=== PATIENT | female | born 1955 | race Caucasian/White ===

== ENCOUNTER 2017-06-22 09:47 | Day surgery (SDC) | payer MEDICARE ==
--- NOTE | 2017-06-22 08:24 | HP ---
PROCEDURE DATE: 06/22/17 HISTORY OF PRESENT ILLNESS: The patient is a 61 y/o who had an episode or two of some blood in her stool. Last colonoscopy 4-5 years ago. Also, had some epigastric pain and some left upper quadrant aches as well. The patient had a history of gastric bypass in 2005. Had upper abdominal pain and some rectal bleeding. Needs EGD and colonoscopy. PAST MEDICAL HISTORY: She has had Crohn's disease and fibromyalgia. She has had CFS. CURRENT MEDICATIONS: The patient's medication list includes Ambien, amitriptyline, amlodipine, citalopram, divalproex, Flonase, hydrocodone, lisinopril, Nitrostat PRN, Nystop topical powder, pantoprazole, oxycodone, potassium chloride. ALLERGIES: PENICILLIN, SULFA, CODEINE, VANCOMYCIN, TRANZENE. PAST SURGICAL HISTORY: Has had a hysterectomy, mastectomy, lumpectomy, appendectomy, gastric bypass. FAMILY HISTORY: Heart disease, diabetes, hypertension. An uncle with colon cancer. SOCIAL HISTORY: No smoking or alcohol abuse. REVIEW OF SYSTEMS: 12 systems reviewed. No chest pain or palpitations. Her prior breast surgeries per Dr. Warren in the past. 12 systems reviewed pertinent as above. PHYSICAL EXAMINATION: GENERAL: No acute distress. HEENT: Sclerae nonicteric. NECK: No JVD. CHEST: Equal excursion. Nonlabored breathing. CVS: Regular rate and rhythm. ABDOMEN: Soft. Some mild tenderness in upper abdomen. No rebound. No guarding. EXTREMITIES: No significant edema. NEURO: Alert, moving extremities symmetrically. No gross motor deficits noted. RECTAL: Deferred until time of endoscopy exam. IMPRESSION: 1. PATIENT HAS SOME UPPER ABDOMINAL PAIN AND PRIOR HISTORY OF GASTRIC BYPASS. NEEDS UPPER ENDOSCOPY TO RULE OUT GASTRIC OR MARGINAL ULCER VS GASTRITIS OR OTHER ETIOLOGY. ALSO NEEDS COLONOSCOPY HER LAST WAS 4-5 YEARS AGO AND SHE HAS HAD SOME RECTAL BLEEDING. She was shown the risk sheet and explained the procedure in detail, but not limited to, bleeding; infection; small risk of bowel injury or perforation possibly requiring open procedure; small risk of missed or nondiagnosis or incomplete exam possibly requiring barium enema or other studies or procedures; general risk of anesthesia or sedation, but not limited to; risk of ongoing morbidity. She understands as well as the risk of bowel prep, risk of anesthesia or sedation, postoperative risk of nausea or cramping, but not limited to. She understands and agrees to the planned procedure. Will proceed in outpatient with EGD and colonoscopy.
[~2017-06-22 09:47] MED LIST: Lactated Ringers 1,000 ML IV ONE; Lactated Ringers 1,000 ML IV SCH
[2017-06-22] MEDS ORDERED: Versed 2 MG/2 ML Injection IV ONE (09:48)
[2017-06-22] MEDS ORDERED: DIPRIVAN 200 MG/20 ML IV ONE (09:48)
[2017-06-22] MEDS ORDERED: Lactated Ringers 1,000 ML IV ONE (12:25)
[2017-06-22 13:20] VITALS: O2SAT 96
[2017-06-22 14:05] VITALS: BP 110/70; PULSE 60
--- NOTE | 2017-06-22 14:32 | OP ---
SURGERY DATE/TIME: 06/22/2017 1155 PREOPERATIVE DIAGNOSES: 1) History of some upper abdominal pain, left upper quadrant pain. 2) History of some rectal bleeding and need for follow up colonoscopy. POSTOPERATIVE DIAGNOSES: 1) Patent gastrojejunal anastomosis. No evidence of any acute ulcer. 2) Poor bowel prep limiting the colon exam. 3) Very tortuous colon. 4) Diverticulosis. 5) Small internal and external hemorrhoids. PROCEDURES: 1) EGD with cold biopsy of the stomach to evaluate for Helicobacter pylori. 2) Colonoscopy to proximal ascending colon (further past this aborted secondary to very poor prep and not able to reduce loops to reach the cecum). 3) Random cold biopsies throughout the colon to evaluate for microscopic colitis. SURGEON: Dr. Shady Alonzo. ANESTHESIA: MAC. ESTIMATED BLOOD LOSS: Minimal. INDICATIONS: As noted above. Risks and benefits explained in detail and not limited to and consent was obtained. DESCRIPTION OF PROCEDURE AND FINDINGS: The patient is taken to the endoscopy room. MAC anesthesia introduced. After official time out and no disagreement with planned procedure, a bite block positioned. Video gastroscope easily passed down the esophagus through the patent gastroenteric anastomosis. The small bowel itself was grossly unremarkable. There were some minimal erythema on the enteric side of the gastroenteric anastomosis from previous bypass. No evidence of any obvious marginal ulcer at this time. Because of her symptoms cold biopsy taken to evaluate for Helicobacter pylori in the stomach. The esophagus is grossly unremarkable. The gastroesophageal junction was about 37 cm. No signs of any ulcers. No signs of any masses. No signs of any inflammation in the esophagus. No signs of any obvious mucosal lesions in the esophagus itself. The scope is withdrawn. Good hemostasis noted on biopsy of the stomach. Again, there had been minimal erythema on the enteric side right next to the gastroenteric anastomosis but no signs of any ulceration to account for aches or pains. The scope is withdrawn. The patient tolerated the procedure well. Attention is then turned to the colonoscopy. Digital rectal exam did not reveal any rectal masses. She did have some small internal and external hemorrhoids. Video colonoscope inserted and passed up the very tortuous, poorly prepped with large amount of liquidy semi-solid stool limiting the exam. With position changes, external pressure the scope was able to be passed down the transverse colon what was felt to be proximal ascending colon. However the mucosa with poor prep and inability to reduce the loops with the scope, it was felt further passage would risk high risk complications versus any benefits. I felt it would be safer to go ahead and withdrawal the scope and order air contrast barium enema to see the cecum itself better. The scope is slowly and carefully withdrawn. Again the prep was very poor limiting the exam for small to medium lesions. There are no signs of any large polyps, masses or obstructing lesions. As she had the left upper quadrant aches and pains, random cold biopsies taken throughout the left side of her colon to evaluate for microscopic colitis. There were no signs of any gross mucosal lesions. No sign of diverticulosis. No internal or external hemorrhoids. No signs of any large polyps, masses or obstructing lesions. The scope is withdrawn. The findings discussed with the family or friend out in the waiting area. I will see her back in the office to go over the biopsy results. Will also order outpatient air contrast barium enema to evaluate the right side of the colon more effectively.
== END 2017-06-22 14:17 | disposition home or self-care (01) ==
LOC: SDC 09:47
PROVIDERS: ATTEND Surgery
PROC: 0DB78ZX Excision of Stomach, Pylorus, Via Natural or Artificial Opening Endoscopic, Diagnostic (ICD-10-PCS; principal; 2017-06-22)
PROC: 0DBG8ZX Excision of Left Large Intestine, Via Natural or Artificial Opening Endoscopic, Diagnostic (ICD-10-PCS; 2017-06-22)
DX: K63.89 Other specified diseases of intestine (principal); Q43.8 Other specified congenital malformations of intestine; K57.90 Diverticulosis of intestine, part unspecified, without perforation or abscess without bleeding; R10.12 Left upper quadrant pain; R10.13 Epigastric pain; Z98.84 Bariatric surgery status; K50.90 Crohn's disease, unspecified, without complications; M79.7 Fibromyalgia; Z79.899 Other long term (current) drug therapy; K64.4 Residual hemorrhoidal skin tags; K64.8 Other hemorrhoids
CPT/HCPCS: 00740; 00810; 87081; J2250; J2704

== ENCOUNTER 2018-06-15 18:09 | Emergency (ER) | payer MEDICARE ==
[2018-06-15] MEDS ORDERED: TORAdol 30 mg Injection IM ONE (19:22)
--- NOTE | 2018-06-15 19:27 | ERPHSYRPT ---
- History of Present Illness Time Seen by Provider: 06/15/18:19 Source: patient Exam Limitations: no limitations Patient Subjective Stated Complaint: fell down 4 steps while leaving a house, butt hit first and then her back hit Triage Nursing Assessment: Pt c/o of falling down some steps and hitting her back, hx of low back fracture and chronic back pain, pain in lower back, vitals wnl, pulses normal, right elbow pain, denies any other injuries Physician History: 62-year-old white female with history of chronic back pain who states she's had back fractures in the past arrives with complaint of pain in her low back lumbar region after falling down stairs landing on her bottom at about 5:00. Patient states pain is worse with movement and palpation. Patient has no movement changes. No sensory changes. Past medical history includes chronic back pain, low back fracture, asthma, DVT , high blood pressure, Crohn's, GERD, abnormal uterine bleeding, rest cancer, fibromyalgia, gastric bypass Past surgical history includes hysterectomy, gastric bypass, IVC filter, mastectomy on the right, lumpectomy on the left Timing/Duration: today (5:00 this evening) Severity: moderate Modifying Factors: Improves With: nothing Associated Symptoms: No nausea, No vomiting, No abdominal pain, No shortness of breath, No heartburn, No diaphoresis, No cough, No chills, No chest pain, No fever, No headaches, No loss of appetite, No malaise, No syncope, No seizure, No weakness Allergies/Adverse Reactions: clorazepate dipotassium [From Tranxene T-Tab] Allergy (Severe, Verified 19:01) Hives Penicillins Allergy (Severe, Verified 06/15/18 19:) pentazocine lactate [From Talwin] Allergy (Severe, Verified 06/15/18 19:01) vancomycin Allergy (Severe, Verified 06/15/18 19:01) Tightness of Throat codeine [Codeine] Allergy (Mild, Verified 06/15/18 19:) Tightness of Throat Sulfa (Sulfonamide Antibiotics) [Sulfa(Sulfonamide Antibiotics)] Allergy (Mild, Verified 06/15/18 19:01) Hives butorphanol tartrate [From Stadol] Allergy (Verified 06/15/18 19:) Hives trazodone Allergy (Verified 11/13/18 19:01) Home Medications: Amitriptyline HCl 25 mg [Elavil 25 mg] 25 mg PO BID 12/16/11 [History] Citalopram Hydrobromide 20 mg* [ceLEXa 20 MG] 20 mg PO DAILY 12/16/11 [ History] Pantoprazole 20 mg [Protonix 20MG Tablet] 40 mg PO DAILY 12/16/11 [History ] Potassium Chloride 8 meq PO DAILY 12/16/11 [History] Zolpidem Tartrate 10 mg [Ambien 10 MG] 10 mg PO DAILY 12/16/11 [History] Divalproex Sodium [Depakote] 500 mg PO BID 03/05/15 [History] Hydrocodone/Acetaminophen [Hydrocodon-Acetaminoph 7.5-325] 1 each PO Q12H PRN PRN 06/16/17 [History] Calcium Carbonate [Paige-Mint] 850 mg PO QID PRN 06/17/17 [History] Alendronate Sodium 70 mg [Fosamax 70 MG] 70 mg PO WEEKLY 06/15/18 [History ] Diclofenac Sodium Gel [Voltaren GEL] 100 gm TP QID PRN 06/15/18 [History] Lisinopril 20 mg PO DAILY 06/15/18 [History] Primidone 50 mg PO TID 06/15/18 [History] - Review of Systems Constitutional: No Fever, No Chills Eyes: No Symptoms Ears, Nose, & Throat: No Symptoms Respiratory: No Cough, No Dyspnea Cardiac: No Chest Pain, No Edema, No Syncope Abdominal/Gastrointestinal: No Abdominal Pain, No Nausea, No Vomiting, No Diarrhea Genitourinary Symptoms: No Dysuria Musculoskeletal: Back Pain (low back pain midline), Fall, Injury, No Arthralgias , No Neck Pain, No Deformity, No Joint Redness, No Joint Pain, No Joint Swelling Skin: No Rash Neurological: No Dizziness, No Focal Weakness, No Sensory Changes Psychological: No Symptoms Endocrine: No Symptoms All Other Systems: Reviewed and Negative - Past Medical History Pertinent Past Medical History: Yes Neurological History: No Pertinent History ENT History: No Pertinent History Cardiac History: Deep Vein Thrombosis, Hypertension Respiratory History: Asthma Endocrine Medical History: No Pertinent History Musculoskeletal History: Fibromyalgia GI Medical History: Crohns Disease, GERD History: No Pertinent History Psycho-Social History: No Pertinent History Female Reproductive Disorders: Abnormal Uterine Bleeding, Breast Cancer Other Medical History: PT. HAS CROHN'S DISEASE AND HAS FIBROMYALGIA, AND HAD BREAST CA 25 YEARS AGO W/ NO RECURRENCE. GASTRIC BYPASS 2005 - Past Surgical History Past Surgical History: Yes Neuro Surgical History: No Pertinent History Cardiac: No Pertinent History Respiratory: No Pertinent History Gastrointestinal: Appendectomy, Cholecystectomy, Other Genitourinary: No Pertinent History Musculoskeletal: No Pertinent History Female Surgical History: Hysterectomy Other Surgical History: gastric bypass, ivc filter,rt right mastectomy 1992,lt lumpectomy - Social History Smoking Status: Never smoker Exposure to second hand smoke: No Drug Use: none Patient Lives Alone: Yes - Female History Hx Now: No - Nursing Vital Signs Nursing Vital Signs: Initial Vital Signs Temperature 98.2 F 06/15/18 18:48 Pulse Rate 79 06/15/18 18:48 Blood Pressure 120/69 06/15/18 18:48 O2 Sat by Pulse Oximetry 99 06/15/18 18:48 Pain Scale Pain Intensity 7 - Physical Exam General Appearance: no apparent distress, alert Eye Exam: PERRL/EOMI, eyes nml inspection Ears, Nose, Throat Exam: normal ENT inspection, TMs normal, pharynx normal, moist mucous membranes Neck Exam: normal inspection, non-tender, supple, full range of motion Respiratory Exam: normal breath sounds, lungs clear, No respiratory distress Cardiovascular Exam: regular rate/rhythm, normal heart sounds, normal peripheral pulses Gastrointestinal/Abdomen Exam: soft, normal bowel sounds, No tenderness, No mass Extremity Exam: normal range of motion, other (mild tenderness with palpation low lumbar region midline tenderness with palpation sacral region), No calf tenderness, No deformities, No lacerations, No penetrations, No parasthesia, No paralysis Neurologic Exam: alert, oriented x 3, cooperative, class a lineman II-XII nml as tested, normal mood/affect, nml cerebellar function, nml station & gait, sensation nml, No motor deficits Skin Exam: normal color, warm, dry, No rash SpO2 Interpretation: normal (99%) SpO2: 99 Oxygen Delivery: Room Air - Course Nursing assessment & vital signs reviewed: Yes - Radiology Exams L-Spine X-ray Interpretation: Interpreted by me (lumbar spine: Compression fractures T12 , L1 do not correspond to location of patient's pain) Pelvis X-ray Interpretation: Interpreted by me, Other (x-ray pelvis: No acute fractures or subluxation) Ordered Tests: Active Orders 24 hr Category Date Time Status LUMBAR LIMITED (2 OR 3 VIEWS) Stat Exams 06/15/18 19:22 Taken PELVIS (1 OR 2 VIEWS) Stat Exams 06/15/18 19:22 Taken Medication Summary Discontinued Medications Generic Name Dose Route Start Last Admin Trade Name Celso PRN Reason Stop Dose Admin Ketorolac Tromethamine 60 mg 06/15/18 19:22 06/15/18 19:56 Toradol 30 Mg Injection IM 06/15/18 19:23 60 mg STAT ONE Administration Ketorolac Tromethamine Confirm 06/15/18 19:49 Toradol 30 Mg Injection Administered 06/15/18 19:50 Dose 60 mg .ROUTE .STK-MED ONE - Progress Progress: improved Progress Note: 06/15/18 20:26 62-year-old white female with history of low back fractures, chronic back pain. Arrives with complaint of pain in her low back sacral area after falling down 4 steps this afternoon. Patient is feeling much better after Toradol. X-ray of her lumbar series shows compression fractures which appear to be L1- T12. No fractures in the lower lumbosacral area where patient has pain. X-ray pelvis no fracture no subluxation. Patient is on [place] at home. Will plan to discharge patient. - Departure Time of Disposition: 20:28 Departure Disposition: Home Clinical Impression: Accidental fall Qualifiers: Encounter type: initial encounter Qualified Code(s): W19.XXXA - Unspecified fall, initial encounter Back pain Qualifiers: Back pain location: low back pain Chronicity: unspecified Back pain laterality : midline Sciatica presence: without sciatica Qualified Code(s): M54.5 - Low back pain Condition: Fair Critical Care Time: No Referrals: FELICIANO GONZALEZ [Primary Care Provider] - Additional Instructions: Return home. Medications as prescribed by your family doctor. Follow-up with your family doctor. Return for acute distress or for severe symptoms. Your x-rays have been preliminarily read they will be reread tomorrow you'll be contacted if any discrepancies are noted.
[2018-06-15] MEDS ORDERED: TORAdol 30 mg Injection ONE (19:49)
[2018-06-15 20:00] VITALS: BP 125/64; PULSE 61
[2018-06-15 20:23] VITALS: O2SAT 99
--- NOTE | 2018-06-16 09:08 | XRAY ---
Indication: Pain following fall. Comparison: None Single AP pelvis demonstrates lower lumbar degenerative spondylosis and partially visualized IVC filter. No other bony, articular, or soft tissue abnormalities.
--- NOTE | 2018-06-16 09:11 | XRAY ---
Indication: Pain following fall. Comparison: December 16, 2013. 3 views of the lumbar spine demonstrates new remote-appearing T12/L1 superior endplate fractures with approximately 50% height loss. Stable mild/moderate L4-S1 degenerative disc disease, IVC filter, and cholecystectomy clips. No other bony, articular, or soft tissue abnormalities.
== END 2018-06-15 20:46 | disposition home or self-care (01) ==
LOC: ED 18:09
DX: M54.5 Low back pain (principal); S39.92XA Unspecified injury of lower back, initial encounter; M48.56XA Collapsed vertebra, not elsewhere classified, lumbar region, initial encounter for fracture; M48.54XA Collapsed vertebra, not elsewhere classified, thoracic region, initial encounter for fracture; W10.9XXA Fall (on) (from) unspecified stairs and steps, initial encounter; Z79.899 Other long term (current) drug therapy
CPT/HCPCS: 72100; 72170; 96372; 99284; J1885

== ENCOUNTER 2019-01-05 12:50 | Day surgery (SDC) | payer MEDICARE ==
[2019-01-05] MEDS ORDERED: Depo-Medrol 40 MG/ML IM ONE (12:51)
[2019-01-05] MEDS ORDERED: Xylocaine 1% Vial 30 ML PF IJ ONE (12:51)
[2019-01-05] MEDS ORDERED: Marcaine 0.5% SDV 10 ML IJ ONE (12:51)
--- NOTE | 2019-01-05 15:02 | XRAY ---
8 seconds fluoroscopy time in surgery for left intra-articular knee injection.
--- NOTE | 2019-01-05 15:10 | XRAY ---
Indication: Left knee injection. Intraoperative fluoroscopy was provided for 8 seconds. Single digital spot image submitted for interpretation demonstrates needle tip projecting over the left femur intercondylar notch. Small amount of contrast injected for needle tip placement. Correlate with intraoperative findings/report.
== END 2019-01-05 14:07 | disposition home or self-care (01) ==
LOC: SDC-PAIN 12:50
PROVIDERS: ATTEND Psychiatry & Neurology Pain Medicine
DX: M17.12 Unilateral primary osteoarthritis, left knee (principal); I10 Essential (primary) hypertension; M79.7 Fibromyalgia; K21.9 Gastro-esophageal reflux disease without esophagitis; K50.90 Crohn's disease, unspecified, without complications; F41.9 Anxiety disorder, unspecified; E66.01 Morbid (severe) obesity due to excess calories; M81.0 Age-related osteoporosis without current pathological fracture
CPT/HCPCS: 20611; 73560; 77002; J1030; J2001; Q9966

== ENCOUNTER 2019-03-09 10:34 | Day surgery (SDC) | payer MEDICARE ==
[2019-03-09] MEDS ORDERED: Xylocaine-Mpf 2% 5 Ml Vial IJ ONE (10:35)
[2019-03-09] MEDS ORDERED: Depo-Medrol 40 MG/ML IM ONE (10:35)
[2019-03-09] MEDS ORDERED: DIPRIVAN 200 MG/20 ML IV ONE (11:18)
[2019-03-09] MEDS ORDERED: Ketamine HCl 50 MG/ML ONE (11:18)
--- NOTE | 2019-03-09 12:28 | XRAY ---
Indication: Bilateral L4-S1 MBB. Intraoperative fluoroscopy was provided for 4 seconds. Single digital spot image submitted for interpretation demonstrates posterior needle tips projecting over the expected course of the left and right L4-S1 nerve roots. Correlate with intraoperative findings/report. Incidental IVC filter projects predominantly over the L4 segment.
--- NOTE | 2019-03-09 12:30 | XRAY ---
4 seconds fluoroscopy time in surgery for bilateral L4-S1 MBB.
[2019-03-09] MEDS ORDERED: Lactated Ringers 1,000 ML IV ONE (13:46)
== END 2019-03-09 11:48 | disposition home or self-care (01) ==
LOC: SDC-PAIN 10:34
PROVIDERS: ATTEND Psychiatry & Neurology Pain Medicine
DX: M47.816 Spondylosis without myelopathy or radiculopathy, lumbar region (principal); I10 Essential (primary) hypertension; K21.9 Gastro-esophageal reflux disease without esophagitis; K50.90 Crohn's disease, unspecified, without complications; M79.7 Fibromyalgia; M81.0 Age-related osteoporosis without current pathological fracture; G47.30 Sleep apnea, unspecified; Z79.899 Other long term (current) drug therapy
CPT/HCPCS: 64493; 64494; 72020; 77002; J1030; J2704

== ENCOUNTER 2019-04-06 12:32 | Day surgery (SDC) | payer MEDICARE ==
[2019-04-06] MEDS ORDERED: Depo-Medrol 40 MG/ML IM ONE (12:33)
[2019-04-06] MEDS ORDERED: Xylocaine 1% Vial 30 ML PF IJ ONE (12:33)
[2019-04-06] MEDS ORDERED: Marcaine 0.5% SDV 10 ML IJ ONE (12:33)
--- NOTE | 2019-04-06 14:52 | XRAY ---
14 seconds fluoroscopy time in surgery for right knee injection.
--- NOTE | 2019-04-06 14:53 | XRAY ---
Indication: Right knee injection. Intraoperative fluoroscopy was provided for 14 seconds. Single digital spot image submitted for interpretation demonstrates needle tip projecting over the right femur intercondylar notch. Small amount of contrast injected for needle tip placement. Correlate with intraoperative findings/report.
== END 2019-04-06 13:48 | disposition home or self-care (01) ==
LOC: SDC-PAIN 12:32
PROVIDERS: ATTEND Psychiatry & Neurology Pain Medicine
DX: M17.11 Unilateral primary osteoarthritis, right knee (principal); I10 Essential (primary) hypertension; K21.9 Gastro-esophageal reflux disease without esophagitis; K50.90 Crohn's disease, unspecified, without complications; M79.7 Fibromyalgia; M81.0 Age-related osteoporosis without current pathological fracture; F41.9 Anxiety disorder, unspecified; G47.30 Sleep apnea, unspecified; D64.9 Anemia, unspecified; Z79.899 Other long term (current) drug therapy
CPT/HCPCS: 73560; 77002; J1030; J2001

== ENCOUNTER 2019-05-04 11:26 | Day surgery (SDC) | payer MEDICARE ==
[2019-05-04] MEDS ORDERED: Marcaine 0.5% SDV 10 ML IJ ONE (11:27)
[2019-05-04] MEDS ORDERED: Depo-Medrol 40 MG/ML IM ONE (11:27)
[2019-05-04] MEDS ORDERED: Ketamine HCl 50 MG/ML ONE (13:08)
[2019-05-04] MEDS ORDERED: DIPRIVAN 200 MG/20 ML IV ONE (13:08)
[2019-05-04] MEDS ORDERED: Lactated Ringers 1,000 ML IV ONE (14:49)
--- NOTE | 2019-05-04 15:02 | XRAY ---
Indication: Bilateral L4-S1 MBB. Intraoperative fluoroscopy was provided for 7 seconds. Single digital spot image submitted for interpretation demonstrates posterior needle tips projecting over the expected course of the left and right L4-S1 nerve roots. Correlate with intraoperative findings/report. Incidental IVC filter projects over the L4 segment.
--- NOTE | 2019-05-04 15:16 | XRAY ---
7 seconds of fluoroscopy was used in surgery for a bilateral L4-L5, L5-S1 MBB.
== END 2019-05-04 13:35 ==
LOC: SDC-PAIN 11:26
PROVIDERS: ATTEND Psychiatry & Neurology Pain Medicine
DX: M47.816 Spondylosis without myelopathy or radiculopathy, lumbar region (principal); M79.7 Fibromyalgia; K21.9 Gastro-esophageal reflux disease without esophagitis; D64.9 Anemia, unspecified; G47.30 Sleep apnea, unspecified; I10 Essential (primary) hypertension; K50.90 Crohn's disease, unspecified, without complications; M81.0 Age-related osteoporosis without current pathological fracture; Z79.899 Other long term (current) drug therapy
CPT/HCPCS: 64493; 64494; 72020; 77002; J1030; J2704

== ENCOUNTER 2019-11-30 15:12 | Inpatient (IN) | payer MEDICARE ==
[2019-11-30] MEDS ORDERED: Sodium Chloride 0.9% 1000 ML 1,000 ML IV STA (15:32)
[2019-11-30] MEDS ORDERED: Sodium Chloride 0.9% 1000 ML 1,000 ML ONE (15:38)
[2019-11-30 15:42] LABS: Absolute Neutrophil Ct (ANC) 8.61 (1.4-6.9); BASOPHIL % 0.1 % (0.0-0.4); Basophil (Absolute #) 0.01 (0-0.4); Eosinophil % 0.1 % (0.00-5.0); Eosinophil (Absolute #) 0.01 (0-0.5); Hematocrit 44.2 % (35-47); Hemoglobin 15.2 gm/dl (12.0-16.0); Lymphocyte (Absolute #) 1.62 (1.0-4.6); Mean Cell Volume 96.1 fl (78-100); Mean Corpuscular Hgb Concent. 34.4 g/dl (32-36); Mean Platelet Volume 8.7 fl (7.5-11.0); Monocyte (Absolute #) 0.56 (0.0-1.3); Monocytes % 5.2 % (0.0-12.0); Neutrophil % 79.6 % (36.0-66.0); Platelet Count 454 K/mm3 (150-450); Red Cell Distribution Width 12.5 % (11.5-14.0); White Blood Count 10.8 K/mm3 (4.0-10.5)
[2019-11-30 15:51] LABS: Appearance SLIGHTLY CLOUDY (CLEAR); Bacteria RARE /HPF (NEGATIVE); Bilirubin NEGATIVE (NEGATIVE); Blood NEGATIVE Ery/ul (0-5); Epithelial Cells RARE /HPF (FEW); Glucose 50 mg/dL (NEGATIVE); Ketones SMALL (NEGATIVE); Leukocyte Esterase NEGATIVE (NEGATIVE); Mucus SLIGHT /HPF (NEGATIVE); Nitrite NEGATIVE (NEGATIVE); Protein,Urine Dip 100 (Negative); RBC 0-2 /HPF (0-2); Specific Gravity 1.025 (1.005-1.025); Urobilinogen NEGATIVE mg/dL (0-1)
[2019-11-30 15:54] LABS: ALBUMIN 4.2 g/dL (3.5-5.0); ALKALINE PHOSPHATASE 133 U/L (38-126); ANION GAP 19.6 MEQ/L (5-15); BLOOD UREA NITROGEN 18 mg/dL (7-17); CHLORIDE 99 mmol/L (98-107); Calcium 10.8 mg/dL (8.4-10.2); Carbon Dioxide 22 mmol/L (22-30); Creatinine 1 0.61 mg/dL (0.52-1.04); Glucose 181 mg/dL (74-106); Potassium 4.8 mmol/L (3.5-5.1); SGOT/AST 158 U/L (14-36); SGPT/ALT 90 U/L (0-35); SODIUM 135 mmol/L (137-145); Total Protein 7.9 g/dL (6.3-8.2)
[2019-11-30] MEDS ORDERED: Zofran 4 MG/2 ML VIAL IV ONE (15:57)
[2019-11-30] MEDS ORDERED: Zofran 4 MG/2 ML VIAL ONE (16:02)
--- NOTE | 2019-11-30 16:21 | ERPHSYRPT ---
- History of Present Illness Time Seen by Provider: 11/30/19 15:20 Historian: patient Patient Subjective Stated Complaint: Reports acute onset abdominal pain described as "squeezing and like my guts might explode." Triage Nursing Assessment: Pt presented alert et oriented x3. Reports acute onset abdominal pain described as "squeezing and like my guts might explode." Denies any recent vomiting/diarrhea. Denies chest pain/shortness of breath. Pupils 4mm reactive. Neck supple without JVD. Symmetrical chest expansion. Lungs clear with adequate airflow. Noted scar to right anterior chest from right sided masectomy. Abdomen obese/tender without palpable organomegaly. Noted pulsatile tones via auscultation to abdomen. Bowel sounds present in all quadrants. No noted dependent edema. Radial pulses equal bilateral. No noted focal neurological deficits. Denies numbness/paresthesias to all extremities. Pedal pulses equal bilateral Physician History: Patient is a 64yo F who presents to ED with c/o lower abdominal pain x 1 day. Pain described as a squeezing sensation. She states " it feels like Pain describes as an ache that is well localized. No radiation. Pain worse with movement and palpation. Pain improves with rest. NO trauma or fevers. Patient has a history of gastric bypass, about 14 years ago per patient. Timing/Duration: today Activities at Onset: none Quality: aching Abdominal Pain Onset Location: RLQ Pain Radiation: no radiation Severity of Pain-Max: moderate Severity of Pain-Current: mild Modifying Factors: Improves With: nothing Associated Symptoms: denies symptoms Allergies/Adverse Reactions: clorazepate dipotassium [From Tranxene T-Tab] Allergy (Severe, Verified 15:24) Hives Penicillins Allergy (Severe, Verified 11/30/19 15:24) pentazocine lactate [From Talwin] Allergy (Severe, Verified 11/30/19 15:24) vancomycin Allergy (Severe, Verified 11/30/19 15:24) Tightness of Throat codeine [Codeine] Allergy (Mild, Verified 11/30/19 15:24) Tightness of Throat Sulfa (Sulfonamide Antibiotics) [Sulfa(Sulfonamide Antibiotics)] Allergy (Mild, Verified 11/30/19 15:24) Hives butorphanol tartrate [From Stadol] Allergy (Verified 11/30/19 15:24) Hives trazodone Allergy (Verified 11/30/19 15:24) Home Medications: Amitriptyline HCl 25 mg [Elavil 25 mg] 25 mg PO BID 12/16/11 [History] Citalopram Hydrobromide 20 mg* [ceLEXa 20 MG] 20 mg PO DAILY 12/16/11 [ History] Pantoprazole 20 mg [Protonix 20MG Tablet] 40 mg PO DAILY 12/16/11 [History ] Potassium Chloride 8 meq PO DAILY 12/16/11 [History] Zolpidem Tartrate 10 mg [Ambien 10 MG] 10 mg PO DAILY 12/16/11 [History] Divalproex Sodium [Depakote] 500 mg PO BID 03/05/15 [History] Hydrocodone/Acetaminophen [Hydrocodon-Acetaminoph 7.5-325] 1 each PO Q12H PRN PRN 06/16/17 [History] Calcium Carbonate [Paige-Mint] 850 mg PO QID PRN 06/17/17 [History] Alendronate Sodium 70 mg [Fosamax 70 MG] 70 mg PO WEEKLY 06/15/18 [History ] Primidone 50 mg PO TID 06/15/18 [History] lisinopriL [Lisinopril] 20 mg PO DAILY 06/15/18 [History] Immunizations Up to Date: Yes Travel Risk - International Travel Have you traveled outside of the country in past 3 weeks: No Have you or anyone close to you been diagnosed with or: No Do your reside in a community with a known COVID-19 case?: Yes If Yes where:: [facility] - Coronavirus Screening Has patient experienced Coronavirus symptoms: No - Review of Systems Constitutional: No Symptoms, No Fever, No Chills Eyes: No Symptoms Ears, Nose, & Throat: No Symptoms Respiratory: No Symptoms, No Cough, No Dyspnea Cardiac: No Symptoms, No Chest Pain, No Edema, No Syncope Abdominal/Gastrointestinal: No Symptoms, No Abdominal Pain, No Nausea, No Vomiting, No Diarrhea Genitourinary Symptoms: No Symptoms, No Dysuria Musculoskeletal: No Symptoms, No Back Pain, No Neck Pain Skin: No Symptoms, No Rash Neurological: No Symptoms, No Dizziness, No Focal Weakness, No Sensory Changes Psychological: No Symptoms Endocrine: No Symptoms Hematologic/Lymphatic: No Symptoms Immunological/Allergic: No Symptoms All Other Systems: Reviewed and Negative - Past Medical History Pertinent Past Medical History: Yes Neurological History: No Pertinent History ENT History: No Pertinent History Cardiac History: Deep Vein Thrombosis, Hypertension Respiratory History: Asthma Endocrine Medical History: No Pertinent History Musculoskeletal History: Fibromyalgia GI Medical History: Crohns Disease, GERD History: No Pertinent History Psycho-Social History: No Pertinent History Female Reproductive Disorders: Abnormal Uterine Bleeding, Breast Cancer Other Medical History: PT. HAS CROHN'S DISEASE AND HAS FIBROMYALGIA, AND HAD BREAST CA 25 YEARS AGO W/ NO RECURRENCE. GASTRIC BYPASS 2005 - Past Surgical History Past Surgical History: Yes Neuro Surgical History: No Pertinent History Cardiac: No Pertinent History Respiratory: No Pertinent History Gastrointestinal: Appendectomy, Cholecystectomy, Other Genitourinary: No Pertinent History Musculoskeletal: No Pertinent History Female Surgical History: Hysterectomy Other Surgical History: gastric bypass, ivc filter,rt right mastectomy 1992,lt lumpectomy - Social History Smoking Status: Never smoker Exposure to second hand smoke: No Drug Use: none Patient Lives Alone: Yes - Nursing Vital Signs Nursing Vital Signs: Initial Vital Signs Temperature 98.4 F 11/30/19 15:13 Pulse Rate 114 H 11/30/19 15:13 Respiratory Rate 16 11/30/19 15:13 Blood Pressure 155/108 11/30/19 15:13 O2 Sat by Pulse Oximetry 93 L 11/30/19 15:13 Pain Scale Pain Intensity 0 - Physical Exam General Appearance: no apparent distress, alert Eye Exam: PERRL/EOMI, eyes nml inspection Ears, Nose, Throat Exam: normal ENT inspection, pharynx normal, moist mucous membranes Neck Exam: normal inspection, non-tender, supple, full range of motion Respiratory Exam: normal breath sounds, lungs clear, No respiratory distress Cardiovascular Exam: regular rate/rhythm, normal heart sounds Gastrointestinal/Abdomen Exam: soft, tenderness (TTP LLQ. Femoral and PT/DP pulses palpable and equal bilaterally. ), No mass Back Exam: normal inspection, normal range of motion, other (NO TTP at area of T12/L1 compression deformity. ), No CVA tenderness, No vertebral tenderness Extremity Exam: normal inspection, normal range of motion, pelvis stable Neurologic Exam: alert, oriented x 3, cooperative, normal mood/affect, nml cerebellar function, sensation nml, No motor deficits Skin Exam: normal color, warm, dry SpO2 Interpretation: normal SpO2: 93 O2 Delivery: Room Air - Course Nursing assessment & vital signs reviewed: Yes EKG Interpreted by Me: RATE, Sinus Tach, NORMAL AXIS, NORMAL INTERVALS - CT Exams Abdomen/Pelvis CT Interpretation: Tele-radiologist Report (Right inguinal hernia with herniated loop of small bowel producing partial small bowel obstruction, moderate inguinal hernia, chronic appearing T12/L1 compression deformity. ) Ordered Tests: Active Orders 24 hr Category Date Time Status EKG-ER Only STAT Care 11/30/19 15:32 Active IV Insertion STAT Care 11/30/19 15:32 Active Nursing [Miscellaneous Nursing Order] ROUTINE Care 11/30/19 18:26 Active ABDOMEN AND PELVIS W CONTRAST [CT] Stat Exams 11/30/19 15:32 Completed CBC W DIFF Stat Lab 11/30/19 15:43 Completed CMP Stat Lab 11/30/19 15:43 Completed CULTURE,URINE Stat Lab 11/30/19 15:43 Received TROPONIN Q3H Lab 11/30/19 15:43 Completed TROPONIN Q3H Lab 11/30/19 18:45 Ordered TROPONIN Q3H Lab 11/30/19 21:45 Ordered TROPONIN Q3H Lab 12/01/19 00:45 Ordered TROPONIN Q3H Lab 12/01/19 03:45 Ordered UA W/RFX UR CULTURE Stat Lab 11/30/19 15:43 Completed Transfer Order Routine Transfer 11/30/19 Ordered Medication Summary Generic Name Dose Route Start Last Admin Trade Name Freq PRN Reason Stop Dose Admin Levofloxacin/Dextrose 500 mg in 100 mls @ 100 mls/hr 11/30/19 18:14 11/30/19 18:19 Levofloxacin 500mg/100ml D5w IV 11/30/19 19:13 100 mls/hr STAT STA 100 mls/hr Administration Discontinued Medications Generic Name Dose Route Start Last Admin Trade Name Freq PRN Reason Stop Dose Admin Sodium Chloride 1,000 mls @ 999 mls/hr 11/30/19 15:32 11/30/19 17:09 Sodium Chloride 0.9% 1000 Ml IV 11/30/19 16:32 Infused .Q1H1M STA Infusion Sodium Chloride Confirm 11/30/19 15:38 Sodium Chloride 0.9% 1000 Ml Administered 11/30/19 15:39 Dose 1,000 mls @ ud .ROUTE .STK-MED ONE Levofloxacin/Dextrose Confirm 11/30/19 18:18 Levofloxacin 500mg/100ml D5w Administered 11/30/19 18:19 Dose 500 mg in 100 mls @ ud IV .STK-MED ONE Morphine Sulfate 4 mg 11/30/19 18:06 11/30/19 18:15 Morphine Sulfate 4 Mg Inj IV 11/30/19 18:07 4 mg STAT ONE Administration Morphine Sulfate Confirm 11/30/19 18:14 Morphine Sulfate 4 Mg Inj Administered 11/30/19 18:15 Dose 4 mg .ROUTE .STK-MED ONE Ondansetron HCl 4 mg 11/30/19 15:57 11/30/19 16:03 Zofran 4 Mg/2 Ml Vial IV 11/30/19 15:58 4 mg STAT ONE Administration Ondansetron HCl Confirm 11/30/19 16:02 Zofran 4 Mg/2 Ml Vial Administered 11/30/19 16:03 Dose 4 mg .ROUTE .STK-MED ONE Lab/Rad Data: Laboratory Result Diagrams 11/30/19 15:43 11/30/19 15:43 Laboratory Results 11/30/19 11/30/19 11/30/19 Range/Units 15:43 15:43 15:43 WBC (4.0-10.5) K/mm3 RBC (4.1-5.4) M/mm3 Hgb (12.0-16.0) gm/dl Hct (35-47) % MCV (78-100) fl MCH (26-32) pg MCHC (32-36) g/dl RDW (11.5-14.0) % Plt Count (150-450) K/mm3 MPV (7.5-11.0) fl Gran % (36.0-66.0) % Eos # (Auto) (0-0.5) Absolute Lymphs (auto) (1.0-4.6) Absolute Monos (auto) (0.0-1.3) Lymphocytes % (24.0-44.0) % Monocytes % (0.0-12.0) % Eosinophils % (0.00-5.0) % Basophils % (0.0-0.4) % Absolute Granulocytes (1.4-6.9) Basophils # (0-0.4) Sodium 135 L (137-145) mmol/L Potassium 4.8 (3.5-5.1) mmol/L Chloride 99 (98-107) mmol/L Carbon Dioxide 22 (22-30) mmol/L Anion Gap 19.6 H (5-15) MEQ/L BUN 18 H (7-17) mg/dL Creatinine 0.61 (0.52-1.04) mg/dL Estimated GFR > 60.0 ML/MIN Glucose 181 H (74-106) mg/dL Calcium 10.8 H (8.4-10.2) mg/dL Total Bilirubin 0.60 (0.2-1.3) mg/dL AST 158 H (14-36) U/L ALT 90 H (0-35) U/L Alkaline Phosphatase 133 H (38-126) U/L Troponin I < 0.012 (0.000-0.034) ng/mL Serum Total Protein 7.9 (6.3-8.2) g/dL Albumin 4.2 (3.5-5.0) g/dL Urine Color [place] (YELLOW) Urine Appearance SLIGHTLY CLOUDY (CLEAR) Urine pH 5.0 (5-6) Ur Specific [place] 1.025 (1.005-1.025) Urine Protein 100 (Negative) Urine Ketones SMALL (NEGATIVE) Urine Blood NEGATIVE (0-5) Sloan/ul Urine Nitrite NEGATIVE (NEGATIVE) Urine Bilirubin NEGATIVE (NEGATIVE) Urine Urobilinogen NEGATIVE (0-1) mg/dL Ur Leukocyte Esterase NEGATIVE (NEGATIVE) Urine WBC (Auto) 6-10 (0-5) /HPF Urine RBC (Auto) 0-2 (0-2) /HPF U Epithel Cells (Auto) RARE (FEW) /HPF Urine Bacteria (Auto) RARE (NEGATIVE) /HPF Urine Mucus (Auto) SLIGHT (NEGATIVE) /HPF Urine Culture Reflexed YES (NO) Urine Glucose 50 (NEGATIVE) mg/dL 11/30/19 Range/Units 15:43 WBC 10.8 H (4.0-10.5) K/mm3 RBC 4.60 (4.1-5.4) M/mm3 Hgb 15.2 (12.0-16.0) gm/dl Hct 44.2 (35-47) % MCV 96.1 (78-100) fl MCH 33.0 H (26-32) pg MCHC 34.4 (32-36) g/dl RDW 12.5 (11.5-14.0) % Plt Count 454 H (150-450) K/mm3 MPV 8.7 (7.5-11.0) fl Gran % 79.6 H (36.0-66.0) % Eos # (Auto) 0.01 (0-0.5) Absolute Lymphs (auto) 1.62 (1.0-4.6) Absolute Monos (auto) 0.56 (0.0-1.3) Lymphocytes % 15.0 L (24.0-44.0) % Monocytes % 5.2 (0.0-12.0) % Eosinophils % 0.1 (0.00-5.0) % Basophils % 0.1 (0.0-0.4) % Absolute Granulocytes 8.61 H (1.4-6.9) Basophils # 0.01 (0-0.4) Sodium (137-145) mmol/L Potassium (3.5-5.1) mmol/L Chloride (98-107) mmol/L Carbon Dioxide (22-30) mmol/L Anion Gap (5-15) MEQ/L BUN (7-17) mg/dL Creatinine (0.52-1.04) mg/dL Estimated GFR ML/MIN Glucose (74-106) mg/dL Calcium (8.4-10.2) mg/dL Total Bilirubin (0.2-1.3) mg/dL AST (14-36) U/L ALT (0-35) U/L Alkaline Phosphatase (38-126) U/L Troponin I (0.000-0.034) ng/mL Serum Total Protein (6.3-8.2) g/dL Albumin (3.5-5.0) g/dL Urine Color (YELLOW) Urine Appearance (CLEAR) Urine pH (5-6) Ur Specific [place] (1.005-1.025) Urine Protein (Negative) Urine Ketones (NEGATIVE) Urine Blood (0-5) Sloan/ul Urine Nitrite (NEGATIVE) Urine Bilirubin (NEGATIVE) Urine Urobilinogen (0-1) mg/dL Ur Leukocyte Esterase (NEGATIVE) Urine WBC (Auto) (0-5) /HPF Urine RBC (Auto) (0-2) /HPF U Epithel Cells (Auto) (FEW) /HPF Urine Bacteria (Auto) (NEGATIVE) /HPF Urine Mucus (Auto) (NEGATIVE) /HPF Urine Culture Reflexed (NO) Urine Glucose (NEGATIVE) mg/dL - Progress Progress: improved Progress Note: 11/30/19 18:54 Hernia not palpable on abdominal exam. Case discussed with Dr. Mckeon who accepts admission to observation. Dr. Gonzalez accepts consultation for SBO, Rt. inguinal hernia. NG tube placed. Patient placed in trendelenbur. Attempted to reduce rt. inguinal hernia. unable to reduce. Discussed with : Samina Will see patient in: hospital (observation) Counseled pt/family regarding: lab results, diagnosis, rad results - Departure Departure Disposition: Observation, Extended Care Facility Clinical Impression: UTI (urinary tract infection), Abdominal pain, Inguinal hernia, Small bowel obstruction, Hiatal hernia Condition: Stable Critical Care Time: No Referrals: VICENTE MENSAH [Primary Care Provider] -
--- NOTE | 2019-11-30 17:19 | XRAY ---
Indication: Lower abdomen/pelvic pain. History Crohn's disease. Multiple contiguous axial images obtained through the abdomen and pelvis using 80 cc Isovue-370 contrast only. Comparison: None Lung bases demonstrates minimal fibrosis/scarring. No infiltrate or effusion. Heart is not enlarged. Moderate sized hiatal hernia with partial intrathoracic stomach. Previous gastric bypass surgery. There is a right inguinal hernia with knuckle of herniated small bowel loop. Proximal small bowel loops are abnormally distended up to 5 cm with fluid leveling favoring partial obstruction. Normal bowel gas and fecal debris in the right hemicolon. Terminal ileum does demonstrate mild circumferential wall thickening consistent with patient's history of Crohn's disease. No free fluid/air. Incidental cholecystectomy, hysterectomy, IVC filter in situ, and a few calcified splenic granulomas. Remaining liver, pancreas, spleen, adrenal glands, kidneys, ureters, and bladder appear unremarkable. Minimal aortic calcifications. No AAA or pathologic retroperitoneal lymphadenopathy. Osseous structures demonstrates osteopenia, mild/moderate lower lumbar degenerative changes, and remote-appearing T12/L1 compression fractures. Impression: 1. Right inguinal hernia with herniated loop of small bowel producing partial small bowel obstruction as detailed. No free fluid/air. 2. Terminal ileum wall thickening consistent with patient's history Crohn's disease. 3. Gastric bypass surgery, moderate sized hiatal hernia with partial intrathoracic stomach, and chronic bony findings.
[2019-11-30] MEDS ORDERED: MORPHINE SULFATE 4 MG INJ IV ONE ×2 (18:06→19:15)
[2019-11-30] MEDS ORDERED: MORPHINE SULFATE 4 MG INJ ONE ×2 (18:14→19:21)
[2019-11-30] MEDS ORDERED: Levofloxacin 500MG/100ML D5W 500 MG/100 ML BAG IV STA (18:14)
[2019-11-30] MEDS ORDERED: Levofloxacin 500MG/100ML D5W 500 MG/100 ML BAG IV ONE (18:18)
[2019-11-30] MEDS ORDERED: BENADRYL 50 MG/ML ONE (18:56)
[2019-11-30] MEDS ORDERED: BENADRYL 50 MG/ML IV ONE (19:01)
[2019-11-30] MEDS: Sodium Chloride 0.9% 1000 ML 1,000 ML IV SCH (19:58)
[2019-11-30] MEDS ORDERED: Sodium Chloride 0.9% 100 ML IVPB 100 ML IV ONE (21:47)
[2019-11-30] MEDS ORDERED: Depacon 500 MG/5 ML IV ONE (21:47)
[2019-11-30] MEDS: Depacon 500 MG/5 ML*** 500 MG in Sodium Chloride 0.9% 100 ML IVPB 100 ML IV SCH (22:05)
[2019-11-30] MEDS: Zofran 4 MG/2 ML VIAL IV PRN (22:11)
[2019-11-30] MEDS: MORPHINE SULFATE 4 MG INJ IV PRN (23:28)
[2019-12-01 04:41] LABS: Absolute Neutrophil Ct (ANC) 4.28 (1.4-6.9); BASOPHIL % 0.2 % (0.0-0.4); Basophil (Absolute #) 0.01 (0-0.4); Eosinophil % 0.3 % (0.00-5.0); Eosinophil (Absolute #) 0.02 (0-0.5); Hematocrit 37.1 % (35-47); Hemoglobin 12.1 gm/dl (12.0-16.0); Lymphocyte (Absolute #) 1.48 (1.0-4.6); Lymphocytes % 23.1 % (24.0-44.0); Mean Corpuscular Hemoglobin 32.6 pg (26-32); Mean Corpuscular Hgb Concent. 32.6 g/dl (32-36); Mean Platelet Volume 8.4 fl (7.5-11.0); Monocyte (Absolute #) 0.62 (0.0-1.3); Monocytes % 9.7 % (0.0-12.0); Neutrophil % 66.7 % (36.0-66.0); Platelet Count 360 K/mm3 (150-450); Red Blood Count 3.71 M/mm3 (4.1-5.4); Red Cell Distribution Width 12.9 % (11.5-14.0); White Blood Count 6.4 K/mm3 (4.0-10.5)
[2019-12-01 04:51] LABS: ALBUMIN 3.3 g/dL (3.5-5.0); ALKALINE PHOSPHATASE 112 U/L (38-126); ANION GAP 9.1 MEQ/L (5-15); BLOOD UREA NITROGEN 14 mg/dL (7-17); CHLORIDE 102 mmol/L (98-107); Calcium 8.5 mg/dL (8.4-10.2); Carbon Dioxide 30 mmol/L (22-30); Creatinine 1 0.63 mg/dL (0.52-1.04); Glucose 131 mg/dL (74-106); Potassium 5.1 mmol/L (3.5-5.1); SGOT/AST 536 U/L (14-36); SGPT/ALT 375 U/L (0-35); SODIUM 136 mmol/L (137-145); Total Protein 6.6 g/dL (6.3-8.2)
[2019-12-01] MEDS: Sodium Chloride 0.9% 1000 ML 1,000 ML IV SCH (06:29)
[2019-12-01] MEDS: MORPHINE SULFATE 4 MG INJ IV PRN ×4 (08:12→20:34)
[2019-12-01] MEDS: Zofran 4 MG/2 ML VIAL IV PRN (08:12)
--- NOTE | 2019-12-01 08:12 | XRAY ---
Indication: NG tube placement. Comparison: December 16, 2013. Portable chest demonstrates new NG tube tip distal esophagus in small hiatal hernia. Lungs less inflated and clear again with a few incidental calcified granulomas. Heart is not enlarged. Bony thorax intact with mild osteopenia, degenerative changes, and right breast postsurgical changes. Impression: NG tube tip in hiatal hernia. Otherwise nonacute chest with again chronic features.
--- NOTE | 2019-12-01 08:14 | XRAY ---
Indication: NG tube advancement. Comparison: Taken earlier in the day. Portable chest unchanged again demonstrating NG tube tip in small hiatal hernia. Remaining heart and lungs unremarkable again with incidental calcified granulomas.
--- NOTE | 2019-12-01 08:40 | PCM.HP ---
History of Present Illness - Chief Complaint Chief Complaint: small bowel obstruction, UTI, hiatal hernia, abdominal pain History of Present Illness: is a 64 year old female pt of Dr. Carr with PHMx gastric bypass surgery (14 yrs ago), Crohn's dz, bilat breast cancer (R with mastectomy in 1992 , L with lumpectomy in 1994), HTN, migraines, and benign tremor who was admitted through ER with 1 day of severe abd pain. Pain began 2.5 d ago; starts in the R suprapubic area and radiates through the periumbilical area to the epigastrum. Did vomit x2 yesterday; has chronic soft stools d/t Crohn's disease. C/o 9/[address] abd/pelvis she was found to have R inguinal hernia with incarcerated loop of small bowel. In ER, the physician was unable to reduce it. Dr. Gonzalez was consulted; NG tube was placed. However even initially it was just proximal to the stomach, and later in the evening it backed out about 2 inches per nursing and the tube was removed (pt has not had any vomiting). WBC were initially 10.8 - down to 6.4 this morning. Her AST and ALT were initially 158 and 90; this morning are 536 and 375. Troponins neg x 5. Pt states she's had intermittent abd pain for some time; had CT abd/pelvis in June 2019. Pt has IVC filter; states she had DVTs with her cancer and they put in the filter when they did the gastric bypass surgery. Pt is on depakote for her migraines. - Review of Systems Cardiac: Chest Pain (R sided with radiation to R neck last night.) Abdominal/Gastrointestinal: Abdominal Pain Musculoskeletal: Myalgias (fibromyalgia ) Psychological: No Anxiety, No Depression, No Suicidal Ideations, No Homicidal Ideations All Other Systems: Reviewed and Negative Medications & Allergies Home Medications: Home Medication List Amitriptyline HCl 25 mg [Elavil 25 mg] 25 mg PO DAILY 12/16/11 [History Confirmed 11/30/19] Citalopram Hydrobromide 20 mg* [ceLEXa 20 MG] 20 mg PO DAILY 12/16/11 [ History Confirmed 11/30/19] Pantoprazole 20 mg [Protonix 20MG Tablet] 40 mg PO DAILY 12/16/11 [ History Confirmed 11/30/19] Potassium Chloride 8 meq PO DAILY 12/16/11 [History Confirmed 11/30/19] Zolpidem Tartrate 10 mg [Ambien 10 MG] 10 mg PO HS 12/16/11 [History Confirmed 11/30/19] Divalproex Sodium [Depakote] 500 mg PO BID 03/05/15 [History Confirmed 11/30/19] Hydrocodone/Acetaminophen [Hydrocodon-Acetaminoph 7.5-325] 1 each PO TID PRN PRN 06/16/17 [History Confirmed 11/30/19] Calcium Carbonate [Paige-Mint] 850 mg PO QID PRN 06/17/17 [History Confirmed ] Alendronate Sodium 70 mg [Fosamax 70 MG] 70 mg PO WEEKLY 06/15/18 [ History Confirmed 11/30/19] Primidone 50 mg PO TID 06/15/18 [History Confirmed 11/30/19] lisinopriL [Lisinopril] 20 mg PO DAILY 06/15/18 [History Confirmed 11/30/19] AMITRIPTYLINE HCL 50 mg Tab [AMITRIPTYLINE HCL 50 mg Tablet] 50 mg PO HS [History Confirmed 11/30/19] Ascorbic Acid [Vitamin C] 1,000 mg PO BID 11/30/19 [History Confirmed 11/30/19] Calcium Carbonate/Vitamin D3 [Calcium 500-Vit D3 600 Tablet] 1 each PO DAILY [History Confirmed 11/30/19] Ergocalciferol (Vitamin D2) [Vitamin D] 400 unit PO DAILY 11/30/19 [History Confirmed 11/30/19] Vitamin B Complex [Super B Complex] 1 each PO DAILY 11/30/19 [History Confirmed 11/30/19] Allergies/Adverse Reactions: Allergies Allergy/AdvReac Type Severity Reaction Status Date / Time clorazepate dipotassium Allergy Severe Hives Verified 11/30/19 15:24 [From Tranxene T-Tab] green pepper Allergy Severe Vomiting Verified 11/30/19 19:55 Penicillins Allergy Severe Verified 11/30/19 15:24 pentazocine lactate Allergy Severe Verified 11/30/19 15:24 [From Talwin] vancomycin Allergy Severe Tightness Verified 11/30/19 15:24 of Throat codeine [Codeine] Allergy Mild Tightness Verified 11/30/19 15:24 of Throat Sulfa (Sulfonamide Allergy Mild Hives Verified 11/30/19 15:24 Antibiotics) [Sulfa(Sulfonamide Antibiotics)] butorphanol tartrate Allergy Hives Verified 11/30/19 15:24 [From Stadol] trazodone Allergy Verified 11/30/19 15:24 fresh tomatoes Allergy Severe Vomiting Uncoded 11/30/19 19:55 - Past Medical History Past Medical History: Yes Neurological History: No Pertinent History ENT History: No Pertinent History Cardiac History: Deep Vein Thrombosis, Hypertension Respiratory History: Asthma Endocrine Medical History: No Pertinent History Musculoskelatal History: Fibromyalgia GI Medical History: Crohns Disease, GERD History: No Pertinent History Pyscho-Social History: No Pertinent History Reproductive Disorders: Abnormal Uterine Bleeding, Breast Cancer Comment: PT. HAS CROHN'S DISEASE AND HAS FIBROMYALGIA, AND HAD BREAST CA 25 YEARS AGO W/ NO RECURRENCE. GASTRIC BYPASS 2005 - Female History Are you now?: No - Past Surgical History Past Surgical History: Yes Neuro Surgical History: No Pertinent History Cardiac History: No Pertinent History Respiratory Surgery: No Pertinent History GI Surgical History: Appendectomy, Cholecystectomy, Other Genitourinary Surgical Hx: No Pertinent History Musculskeletal Surgical Hx: No Pertinent History Female Surgical History: Hysterectomy Other Surgical History: gastric bypass, ivc filter,rt right mastectomy 1992,lt lumpectomy - Social History Smoking Status: Never smoker Exposure to second hand smoke: No Alcohol: None Drug Use: none - Physical Exam Vital Signs: Vital Signs - 24 hr Temp Pulse Resp BP Pulse Ox 12/01/19 06:53 98.1 F 84 20 127/60 99 12/01/19 06:39 96 12/01/19 04:00 98.7 F 86 18 122/59 96 12/01/19 00:00 98.5 F 92 H 18 146/67 94 L 11/30/19 20:37 99.1 F 112 H 18 132/70 96 11/30/19 20:27 95 11/30/19 18:58 93 L 11/30/19 17:59 96 H 18 159/79 98 11/30/19 16:50 98 H 20 144/65 98 11/30/19 16:03 92 H 18 154/84 99 11/30/19 15:13 98.4 F 114 H 16 155/108 93 L General Appearance: mild distress, alert, obese Neurologic Exam: oriented x 3, cooperative Eye Exam: eyes nml inspection Ears, Nose, Throat Exam: moist mucous membranes Neck Exam: normal inspection, non-tender, No lymphadenopathy Respiratory Exam: normal breath sounds, lungs clear, No crackles/rales, No rhonchi, No wheezing Cardiovascular Exam: regular rate/rhythm, normal heart sounds, No murmur Gastrointestinal/Abdomen Exam: tenderness (RLQ, periumbilical, and epigastric.) , No normal bowel sounds (hypoactive but present), No distention, No mass, No guarding, No rebound Back Exam: normal inspection, No rash Extremity Exam: normal inspection, No pedal edema, No swelling Skin Exam: normal color, warm, dry, No rash Results - Labs Lab/Micro Results: Lab Results-Last 24 Hours 11/30/19 11/30/19 11/30/19 Range/Units 15:43 15:43 15:43 WBC 10.8 H (4.0-10.5) K/mm3 RBC 4.60 (4.1-5.4) M/mm3 Hgb 15.2 (12.0-16.0) gm/dl Hct 44.2 (35-47) % MCV 96.1 (78-100) fl MCH 33.0 H (26-32) pg MCHC 34.4 (32-36) g/dl RDW 12.5 (11.5-14.0) % Plt Count 454 H (150-450) K/mm3 MPV 8.7 (7.5-11.0) fl Gran % 79.6 H (36.0-66.0) % Eos # (Auto) 0.01 (0-0.5) Absolute Lymphs (auto) 1.62 (1.0-4.6) Absolute Monos (auto) 0.56 (0.0-1.3) Lymphocytes % 15.0 L (24.0-44.0) % Monocytes % 5.2 (0.0-12.0) % Eosinophils % 0.1 (0.00-5.0) % Basophils % 0.1 (0.0-0.4) % Absolute Granulocytes 8.61 H (1.4-6.9) Basophils # 0.01 (0-0.4) Sodium 135 L (137-145) mmol/L Potassium 4.8 (3.5-5.1) mmol/L Chloride 99 (98-107) mmol/L Carbon Dioxide 22 (22-30) mmol/L Anion Gap 19.6 H (5-15) MEQ/L BUN 18 H (7-17) mg/dL Creatinine 0.61 (0.52-1.04) mg/dL Estimated GFR > 60.0 ML/MIN Glucose 181 H (74-106) mg/dL Calcium 10.8 H (8.4-10.2) mg/dL Total Bilirubin 0.60 (0.2-1.3) mg/dL AST 158 H (14-36) U/L ALT 90 H (0-35) U/L Alkaline Phosphatase 133 H (38-126) U/L Troponin I < 0.012 (0.000-0.034) ng/mL Serum Total Protein 7.9 (6.3-8.2) g/dL Albumin 4.2 (3.5-5.0) g/dL Urine Color (YELLOW) Urine Appearance (CLEAR) Urine pH (5-6) Ur Specific [place] (1.005-1.025) Urine Protein (Negative) Urine Ketones (NEGATIVE) Urine Blood (0-5) Sloan/ul Urine Nitrite (NEGATIVE) Urine Bilirubin (NEGATIVE) Urine Urobilinogen (0-1) mg/dL Ur Leukocyte Esterase (NEGATIVE) Urine WBC (Auto) (0-5) /HPF Urine RBC (Auto) (0-2) /HPF U Epithel Cells (Auto) (FEW) /HPF Urine Bacteria (Auto) (NEGATIVE) /HPF Urine Mucus (Auto) (NEGATIVE) /HPF Urine Culture Reflexed (NO) Urine Glucose (NEGATIVE) mg/dL 11/30/19 11/30/19 11/30/19 Range/Units 15:43 19:00 22:00 WBC (4.0-10.5) K/mm3 RBC (4.1-5.4) M/mm3 Hgb (12.0-16.0) gm/dl Hct (35-47) % MCV (78-100) fl MCH (26-32) pg MCHC (32-36) g/dl RDW (11.5-14.0) % Plt Count (150-450) K/mm3 MPV (7.5-11.0) fl Gran % (36.0-66.0) % Eos # (Auto) (0-0.5) Absolute Lymphs (auto) (1.0-4.6) Absolute Monos (auto) (0.0-1.3) Lymphocytes % (24.0-44.0) % Monocytes % (0.0-12.0) % Eosinophils % (0.00-5.0) % Basophils % (0.0-0.4) % Absolute Granulocytes (1.4-6.9) Basophils # (0-0.4) Sodium (137-145) mmol/L Potassium (3.5-5.1) mmol/L Chloride (98-107) mmol/L Carbon Dioxide (22-30) mmol/L Anion Gap (5-15) MEQ/L BUN (7-17) mg/dL Creatinine (0.52-1.04) mg/dL Estimated GFR ML/MIN Glucose (74-106) mg/dL Calcium (8.4-10.2) mg/dL Total Bilirubin (0.2-1.3) mg/dL AST (14-36) U/L ALT (0-35) U/L Alkaline Phosphatase (38-126) U/L Troponin I < 0.012 < 0.012 (0.000-0.034) ng/mL Serum Total Protein (6.3-8.2) g/dL Albumin (3.5-5.0) g/dL Urine Color [place] (YELLOW) Urine Appearance SLIGHTLY CLOUDY (CLEAR) Urine pH 5.0 (5-6) Ur Specific [place] 1.025 (1.005-1.025) Urine Protein 100 (Negative) Urine Ketones SMALL (NEGATIVE) Urine Blood NEGATIVE (0-5) Sloan/ul Urine Nitrite NEGATIVE (NEGATIVE) Urine Bilirubin NEGATIVE (NEGATIVE) Urine Urobilinogen NEGATIVE (0-1) mg/dL Ur Leukocyte Esterase NEGATIVE (NEGATIVE) Urine WBC (Auto) 6-10 (0-5) /HPF Urine RBC (Auto) 0-2 (0-2) /HPF U Epithel Cells (Auto) RARE (FEW) /HPF Urine Bacteria (Auto) RARE (NEGATIVE) /HPF Urine Mucus (Auto) SLIGHT (NEGATIVE) /HPF Urine Culture Reflexed YES (NO) Urine Glucose 50 (NEGATIVE) mg/dL 12/01/19 12/01/19 12/01/19 Range/Units 00:50 04:30 04:30 WBC 6.4 (4.0-10.5) K/mm3 RBC 3.71 L (4.1-5.4) M/mm3 Hgb 12.1 D (12.0-16.0) gm/dl Hct 37.1 (35-47) % MCV 100.0 (78-100) fl MCH 32.6 H (26-32) pg MCHC 32.6 (32-36) g/dl RDW 12.9 (11.5-14.0) % Plt Count 360 (150-450) K/mm3 MPV 8.4 (7.5-11.0) fl Gran % 66.7 H (36.0-66.0) % Eos # (Auto) 0.02 (0-0.5) Absolute Lymphs (auto) 1.48 (1.0-4.6) Absolute Monos (auto) 0.62 (0.0-1.3) Lymphocytes % 23.1 L (24.0-44.0) % Monocytes % 9.7 (0.0-12.0) % Eosinophils % 0.3 (0.00-5.0) % Basophils % 0.2 (0.0-0.4) % Absolute Granulocytes 4.28 (1.4-6.9) Basophils # 0.01 (0-0.4) Sodium (137-145) mmol/L Potassium (3.5-5.1) mmol/L Chloride (98-107) mmol/L Carbon Dioxide (22-30) mmol/L Anion Gap (5-15) MEQ/L BUN (7-17) mg/dL Creatinine (0.52-1.04) mg/dL Estimated GFR ML/MIN Glucose (74-106) mg/dL Calcium (8.4-10.2) mg/dL Total Bilirubin (0.2-1.3) mg/dL AST (14-36) U/L ALT (0-35) U/L Alkaline Phosphatase (38-126) U/L Troponin I < 0.012 < 0.012 (0.000-0.034) ng/mL Serum Total Protein (6.3-8.2) g/dL Albumin (3.5-5.0) g/dL Urine Color (YELLOW) Urine Appearance (CLEAR) Urine pH (5-6) Ur Specific [place] (1.005-1.025) Urine Protein (Negative) Urine Ketones (NEGATIVE) Urine Blood (0-5) Sloan/ul Urine Nitrite (NEGATIVE) Urine Bilirubin (NEGATIVE) Urine Urobilinogen (0-1) mg/dL Ur Leukocyte Esterase (NEGATIVE) Urine WBC (Auto) (0-5) /HPF Urine RBC (Auto) (0-2) /HPF U Epithel Cells (Auto) (FEW) /HPF Urine Bacteria (Auto) (NEGATIVE) /HPF Urine Mucus (Auto) (NEGATIVE) /HPF Urine Culture Reflexed (NO) Urine Glucose (NEGATIVE) mg/dL 04/30/20 Range/Units 04:30 WBC (4.0-10.5) K/mm3 RBC (4.1-5.4) M/mm3 Hgb (12.0-16.0) gm/dl Hct (35-47) % MCV (78-100) fl MCH (26-32) pg MCHC (32-36) g/dl RDW (11.5-14.0) % Plt Count (150-450) K/mm3 MPV (7.5-11.0) fl Gran % (36.0-66.0) % Eos # (Auto) (0-0.5) Absolute Lymphs (auto) (1.0-4.6) Absolute Monos (auto) (0.0-1.3) Lymphocytes % (24.0-44.0) % Monocytes % (0.0-12.0) % Eosinophils % (0.00-5.0) % Basophils % (0.0-0.4) % Absolute Granulocytes (1.4-6.9) Basophils # (0-0.4) Sodium 136 L (137-145) mmol/L Potassium 5.1 (3.5-5.1) mmol/L Chloride 102 (98-107) mmol/L Carbon Dioxide 30 (22-30) mmol/L Anion Gap 9.1 (5-15) MEQ/L BUN 14 (7-17) mg/dL Creatinine 0.63 (0.52-1.04) mg/dL Estimated GFR > 60.0 ML/MIN Glucose 131 H (74-106) mg/dL Calcium 8.5 D (8.4-10.2) mg/dL Total Bilirubin 0.40 (0.2-1.3) mg/dL AST 536 H (14-36) U/L ALT 375 H (0-35) U/L Alkaline Phosphatase 112 (38-126) U/L Troponin I (0.000-0.034) ng/mL Serum Total Protein 6.6 (6.3-8.2) g/dL Albumin 3.3 L (3.5-5.0) g/dL Urine Color (YELLOW) Urine Appearance (CLEAR) Urine pH (5-6) Ur Specific [place] (1.005-1.025) Urine Protein (Negative) Urine Ketones (NEGATIVE) Urine Blood (0-5) Sloan/ul Urine Nitrite (NEGATIVE) Urine Bilirubin (NEGATIVE) Urine Urobilinogen (0-1) mg/dL Ur Leukocyte Esterase (NEGATIVE) Urine WBC (Auto) (0-5) /HPF Urine RBC (Auto) (0-2) /HPF U Epithel Cells (Auto) (FEW) /HPF Urine Bacteria (Auto) (NEGATIVE) /HPF Urine Mucus (Auto) (NEGATIVE) /HPF Urine Culture Reflexed (NO) Urine Glucose (NEGATIVE) mg/dL Microbiology 11/30/19 15:43 Urine Culture - Preliminary Urine, Void NO GROWTH TO DATE - Radiology Impressions Radiology Exams & Impressions: Radiology Procedures Category Date Time Status ABDOMEN AND PELVIS W CONTRAST [CT] Stat Exams 11/30/19 15:32 Completed CHEST 1 VIEW (PORTABLE) Routine Exams 11/30/19 19:18 Completed CHEST 1 VIEW (PORTABLE) Stat Exams 11/30/19 19:00 Completed Assessment/Plan (1) Abdominal pain Current Visit: Yes Status: Acute Qualifiers: Abdominal location: generalized Qualified Code(s): R10.84 - Generalized abdominal pain Assessment & Plan: Due to inguinal hernia/SBO. IV pain meds appear to be working well. Surgery consult pending, thank you! Code(s): R10.9 - UNSPECIFIED ABDOMINAL PAIN (2) Small bowel obstruction Current Visit: Yes Status: Acute Code(s): K56.609 - UNSP INTESTNL OBST, UNSP TO PARTIAL VERSUS COMPLETE OBST (3) Inguinal hernia Current Visit: Yes Status: Acute Qualifiers: Obstruction and gangrene presence: with obstruction but without gangrene Laterality: unilateral Recurrence: non-recurrent Qualified Code(s): K40.30 - Unilateral inguinal hernia, with obstruction, without gangrene, not specified as recurrent Code(s): K40.90 - UNIL INGUINAL HERNIA, W/O OBST OR GANGR, NOT SPCF RECUR (4) Hiatal hernia Current Visit: Yes Status: Acute Code(s): K44.9 - DIAPHRAGMATIC HERNIA WITHOUT OBSTRUCTION OR GANGRENE (5) UTI (urinary tract infection) Current Visit: Yes Status: Acute Qualifiers: Urinary tract infection type: acute cystitis Hematuria presence: without hematuria Qualified Code(s): N30.00 - Acute cystitis without hematuria Assessment & Plan: mildly increased WBC in urine - ucx pending. Pt given 1 dose of levaquin in the ER; I will continue her on this for now. Code(s): N39.0 - URINARY TRACT INFECTION, SITE NOT SPECIFIED
[2019-12-01] MEDS: PROTONIX 40 MG IV IV SCH (09:14)
[2019-12-01] MEDS: Depacon 500 MG/5 ML*** 500 MG in Sodium Chloride 0.9% 100 ML IVPB 100 ML IV SCH ×2 (09:53→21:43)
[2019-12-01] MEDS ORDERED: Levofloxacin 500MG/100ML D5W 500 MG/100 ML BAG IV SCH (15:30)
[2019-12-01] MEDS ORDERED: Lactated Ringers 1,000 ML IV SCH (15:30)
[2019-12-01] MEDS ORDERED: CLINDAMYCIN-D5W 900 MG/50 ML*** 900 MG/50 ML BAG IV SCH (15:30)
[2019-12-01] MEDS: D5W/0.45NS W/ 20mEq KCl 1000 ML 1,000 ML IV SCH (15:54)
[2019-12-02] MEDS: MORPHINE SULFATE 4 MG INJ IV PRN ×5 (00:30→17:25)
[2019-12-02 04:45] LABS: Absolute Neutrophil Ct (ANC) 2.97 (1.4-6.9); BASOPHIL % 0.3 % (0.0-0.4); Basophil (Absolute #) 0.02 (0-0.4); Eosinophil % 1.5 % (0.00-5.0); Eosinophil (Absolute #) 0.09 (0-0.5); Hematocrit 35.6 % (35-47); Hemoglobin 11.6 gm/dl (12.0-16.0); Lymphocyte (Absolute #) 2.29 (1.0-4.6); Lymphocytes % 38.9 % (24.0-44.0); Mean Corpuscular Hemoglobin 33.2 pg (26-32); Mean Corpuscular Hgb Concent. 32.6 g/dl (32-36); Mean Platelet Volume 8.7 fl (7.5-11.0); Monocyte (Absolute #) 0.52 (0.0-1.3); Monocytes % 8.8 % (0.0-12.0); Neutrophil % 50.5 % (36.0-66.0); Platelet Count 327 K/mm3 (150-450); Red Blood Count 3.49 M/mm3 (4.1-5.4); White Blood Count 5.9 K/mm3 (4.0-10.5)
[2019-12-02 04:57] LABS: ALBUMIN 3.1 g/dL (3.5-5.0); ALKALINE PHOSPHATASE 104 U/L (38-126); AMYLASE 30 U/L (30-110); ANION GAP 8.5 MEQ/L (5-15); BLOOD UREA NITROGEN 7 mg/dL (7-17); CHLORIDE 105 mmol/L (98-107); Calcium 7.9 mg/dL (8.4-10.2); Carbon Dioxide 29 mmol/L (22-30); Creatinine 1 0.51 mg/dL (0.52-1.04); Glucose 117 mg/dL (74-106); LIPASE 51 U/L (23-300); Potassium 4.3 mmol/L (3.5-5.1); SGOT/AST 198 U/L (14-36); SGPT/ALT 237 U/L (0-35); SODIUM 138 mmol/L (137-145); Total Protein 6.3 g/dL (6.3-8.2)
[2019-12-02] MEDS: D5W/0.45NS W/ 20mEq KCl 1000 ML 1,000 ML IV SCH ×2 (05:11→19:22)
--- NOTE | 2019-12-02 08:05 | PCM.NOTE ---
Date and Time: 12/02/19800 Subjective Assessment: Pt c/o R groin discomfort 4-12/10; has recently had pain medication. She is not hungry or thirsty. Surgery consulted yesterday, thank you. Unable to appreciate hernia on exam ( as was RN, as was I) so small bowel follow through scheduled for today. Pt is NPO in the event surgery is planned afterward. - Review of Systems Constitutional: No Fever Abdominal/Gastrointestinal: Abdominal Pain Objective Exam General Appearance: no apparent distress, alert, obese Neurologic Exam: oriented x 3, cooperative Skin Exam: normal color, warm, dry, No rash Eye Exam: eyes nml inspection Ears, Nose, Throat Exam: moist mucous membranes Neck Exam: normal inspection Respiratory Exam: normal breath sounds, lungs clear, No crackles/rales, No rhonchi, No wheezing Cardiovascular Exam: regular rate/rhythm, normal heart sounds, No murmur Gastrointestinal/Abdomen Exam: soft, normal bowel sounds, tenderness (R groin), No distention, No mass, No guarding, No rebound Extremity Exam: normal inspection, No pedal edema, No swelling OBJECTIVE DATA Vital Signs: Vital Signs - 24 hr Temp Pulse Resp BP BP Pulse Ox 12/02/19 07:39 98.7 F 87 18 134/63 96 12/02/19 04:00 98.1 F 87 20 130/60 97 12/02/19 00:00 98.3 F 83 18 115/57 96 12/01/19 20:59 94 L 12/01/19 19:26 98.6 F 86 20 110/56 95 12/01/19 16:00 98.5 F 79 18 118/56 95 12/01/19 11:20 98.5 F 80 18 110/53 94 L Pain Assessment - Last Documented Pain Intensity 7 Pain Scale Used 0-10 Pain Scale Intake and Output: Intake & Output 11/29/19 11/30/19 12/01/19 12/02/19 11:59 11:59 11:59 11:59 Intake Total 835 1264 Output Total 1150 650 Balance -315 614 Weight 80.8 kg Lab Results: Lab Results-Last 24 Hours 12/01/19 12/02/19 12/02/19 Range/Units 08:49 04: 04: WBC 5.9 (4.0-10.5) K/mm3 RBC 3.49 L (4.1-5.4) M/mm3 Hgb 11.6 L (12.0-16.0) gm/dl Hct 35.6 (35-47) % MCV 102.0 H (78-100) fl MCH 33.2 H (26-32) pg MCHC 32.6 (32-36) g/dl RDW 13.0 (11.5-14.0) % Plt Count 327 (150-450) K/mm3 MPV 8.7 (7.5-11.0) fl Gran % 50.5 (36.0-66.0) % Eos # (Auto) 0.09 (0-0.5) Absolute Lymphs (auto) 2.29 (1.0-4.6) Absolute Monos (auto) 0.52 (0.0-1.3) Lymphocytes % 38.9 (24.0-44.0) % Monocytes % 8.8 (0.0-12.0) % Eosinophils % 1.5 (0.00-5.0) % Basophils % 0.3 (0.0-0.4) % Absolute Granulocytes 2.97 (1.4-6.9) Basophils # 0.02 (0-0.4) Sodium 138 (137-145) mmol/L Potassium 4.3 (3.5-5.1) mmol/L Chloride 105 (98-107) mmol/L Carbon Dioxide 29 (22-30) mmol/L Anion Gap 8.5 (5-15) MEQ/L BUN 7 (7-17) mg/dL Creatinine 0.51 L (0.52-1.04) mg/dL Estimated GFR > 60.0 ML/MIN Glucose 117 H (74-106) mg/dL Calcium 7.9 L (8.4-10.2) mg/dL Total Bilirubin 0.40 (0.2-1.3) mg/dL AST 198 H (14-36) U/L ALT 237 H (0-35) U/L Alkaline Phosphatase 104 (38-126) U/L Serum Total Protein 6.3 (6.3-8.2) g/dL Albumin 3.1 L (3.5-5.0) g/dL Amylase 30 (30-110) U/L Lipase 144 51 (23-300) U/L Radiology Exams: Radiology Procedures Category Date Time Status ABDOMEN AND PELVIS W CONTRAST [CT] Stat Exams 11/30/19 15:32 Completed CHEST 1 VIEW (PORTABLE) Routine Exams 11/30/19 19:18 Completed CHEST 1 VIEW (PORTABLE) Stat Exams 11/30/19 19:00 Completed SMALL BOWEL SERIES Urgent Exams 12/02/19 06:00 Ordered Assessment/Plan (1) Abdominal pain Current Visit: Yes Status: Acute Qualifiers: Abdominal location: generalized Qualified Code(s): R10.84 - Generalized abdominal pain Assessment & Plan: RLQ/R groin. Surgery to re-eval after sm bowel follow through. Code(s): R10.9 - UNSPECIFIED ABDOMINAL PAIN (2) Small bowel obstruction Current Visit: Yes Status: Acute Code(s): K56.609 - UNSP INTESTNL OBST, UNSP TO PARTIAL VERSUS COMPLETE OBST (3) Inguinal hernia Current Visit: Yes Status: Acute Qualifiers: Obstruction and gangrene presence: with obstruction but without gangrene Laterality: unilateral Recurrence: non-recurrent Qualified Code(s): K40.30 - Unilateral inguinal hernia, with obstruction, without gangrene, not specified as recurrent Code(s): K40.90 - UNIL INGUINAL HERNIA, W/O OBST OR GANGR, NOT SPCF RECUR (4) Elevated LFTs Current Visit: Yes Status: Acute Assessment & Plan: Improved today. Will continue to monitor. Could simply be due to acute illness. Code(s): R79.89 - OTHER SPECIFIED ABNORMAL FINDINGS OF BLOOD CHEMISTRY (5) Hiatal hernia Current Visit: Yes Status: Chronic Code(s): K44.9 - DIAPHRAGMATIC HERNIA WITHOUT OBSTRUCTION OR GANGRENE (6) UTI (urinary tract infection) Current Visit: Yes Status: Ruled-out Qualifiers: Urinary tract infection type: acute cystitis Hematuria presence: without hematuria Qualified Code(s): N30.00 - Acute cystitis without hematuria Assessment & Plan: UCx neg. Abx discontinued. Code(s): N39.0 - URINARY TRACT INFECTION, SITE NOT SPECIFIED
--- NOTE | 2019-12-02 08:23 | CONS ---
CONSULT DATE: 12/01/2019 REASON FOR CONSULT: Small bowel obstruction. HISTORY: The patient had abdominal pain, nausea and subsequent vomiting. She had a nasogastric tube placed and somehow this came out, postoperatively it is back in. She had a few doses of morphine. She states she feels about the same as when she came in. She may be one hair better but not a lot better. She said when she coughs, moves or gets up, she has some pain in the right lower quadrant. Her white count was elevated. Her vital signs have been stable. Her IV has been running 100. Her urine output has been satisfactory. Her CT scan showed a partial small bowel obstruction which seems to be originating from the right inguinal area which I think there may be a trapped loop there. She had one diarrheal stool since she came in. She tolerating the NG being out. She does not look hypoxic. On abdominal examination, she is mildly distended but she has no peritoneal signs and on very deep and careful inspection of the abdominal wall in the lower abdomen and especially the right inguinal area. I do not feel any suggestion of an incarcerated hernia. I am not getting any reaction from the patient like I should be if there is an incarcerated hernia there. Additional story: She was told by Dr. Brittaney Bryant quite some while ago, about 20 years ago, that she had Crohn's disease but she has never had an interventional diagnosis of this. She has never had a bowel resection. The patient has had hysterectomy, appendectomy and cholecystectomy. She has been told she has adhesions in the past. She had an EGD and colonoscopy June [address] Shady Alonzo. She had a modified radical mastectomy quite some while ago by Dr. Zachariah Perez and she had a lumpectomy about six or seven years later on the contralateral side on the left side by Dr. Zachariah Perez. She has no known recurrence of her breast cancer. Chilo discussion with the patient. I was actually prepared to take this lady to surgery for the possibility on the CT scan but at this time clinically I do not feel there is an incarcerated right inguinal hernia. She certainly probably does have adhesions. There is question that Crohn's was brought up although she has never been on any medications and she said this is not like a Crohn's attack. We will obtain a small bowel follow through, this will clear the picture. If she needs surgical intervention this will follow shortly after.
--- NOTE | 2019-12-02 11:43 | XRAY ---
Indication: Pelvic pain. History Crohn's disease. Comparison: None Preliminary science intern abdomen appears nonacute and nonobstructed with cholecystectomy clips and IVC filter in situ. Osseous structures intact. The patient ingested approximately 700 cc barium for small bowel follow-through exam. Multiple delayed overhead and spot compression views obtained. There has been gastric bypass surgery. Barium moves antegrade to the level of the ascending colon within 1 hour 20 minutes. Overhead and spot compression view of the small bowel loops are negative for focal stricture, obstruction, flocculation, or inflammatory changes. Normal appearing ileocecal junction. Impression: Negative small bowel follow-through exam. Approximately 1.3 minutes fluoroscopy used.
[2019-12-02] MEDS: Depacon 500 MG/5 ML*** 500 MG in Sodium Chloride 0.9% 100 ML IVPB 100 ML IV SCH (11:46)
[2019-12-02] MEDS: PROTONIX 40 MG IV IV SCH (11:46)
[2019-12-02] MEDS: Zofran 4 MG/2 ML VIAL IV PRN ×2 (12:56→17:38)
[2019-12-02] MEDS: NYSTOP 30 GM CREAM TOP PRN (15:18)
[2019-12-02] MEDS ORDERED: ELAVIL 25 MG ONE (21:10)
[2019-12-02] MEDS: MYSOLINE 50MG PO SCH (21:16)
[2019-12-02] MEDS: Ambien 10 MG PO PRN (21:17)
[2019-12-02] MEDS: NORCO 7.5/325 MG TAB PO PRN (21:27)
[2019-12-02] MEDS ORDERED: NON-FORMULARY ITEM (Divalproex Sodium [Depakote] 500 MG) PO SCH (22:00)
[2019-12-03] MEDS: D5W/0.45NS W/ 20mEq KCl 1000 ML 1,000 ML IV SCH ×2 (05:41→15:51)
[2019-12-03 05:59] LABS: Hematocrit 35.2 % (35-47); Hemoglobin 11.3 gm/dl (12.0-16.0); Mean Cell Volume 101.4 fl (78-100); Mean Corpuscular Hemoglobin 32.6 pg (26-32); Mean Corpuscular Hgb Concent. 32.1 g/dl (32-36); Mean Platelet Volume 8.5 fl (7.5-11.0); Platelet Count 275 K/mm3 (150-450); Red Blood Count 3.47 M/mm3 (4.1-5.4); Red Cell Distribution Width 12.8 % (11.5-14.0); White Blood Count 6.1 K/mm3 (4.0-10.5)
[2019-12-03 06:45] LABS: ALBUMIN 2.8 g/dL (3.5-5.0); ALKALINE PHOSPHATASE 88 U/L (38-126); BLOOD UREA NITROGEN 3 mg/dL (7-17); CHLORIDE 106 mmol/L (98-107); Calcium 7.8 mg/dL (8.4-10.2); Carbon Dioxide 27 mmol/L (22-30); Creatinine 1 0.46 mg/dL (0.52-1.04); Glucose 132 mg/dL (74-106); Potassium 4.6 mmol/L (3.5-5.1); SGOT/AST 70 U/L (14-36); SGPT/ALT 146 U/L (0-35); SODIUM 138 mmol/L (137-145); Total Protein 5.8 g/dL (6.3-8.2)
[2019-12-03] MEDS ORDERED: NORCO 7.5/325 MG TAB ONE (07:33)
[2019-12-03] MEDS: NORCO 7.5/325 MG TAB PO PRN ×2 (07:34→18:50)
[2019-12-03] MEDS: VITA-BEE WITH C PO SCH (09:13)
[2019-12-03] MEDS: Zestril 20 MG PO SCH (09:14)
[2019-12-03] MEDS: Protonix 40MG Tablet PO SCH (09:15)
[2019-12-03] MEDS: ELAVIL 25 MG PO SCH (09:15)
[2019-12-03] MEDS: MYSOLINE 50MG PO SCH ×3 (09:15→21:30)
[2019-12-03] MEDS: NYSTOP 30 GM CREAM TOP PRN (09:16)
[2019-12-03] MEDS: ceLEXa 20 MG PO SCH (09:16)
[2019-12-03] MEDS: Klor Con 10 MEQ PO SCH (09:16)
[2019-12-03] MEDS: Tums EX 750 MG PO PRN (09:18)
[2019-12-03] MEDS ORDERED: Protonix 20MG Tablet PO SCH (10:00)
[2019-12-03] MEDS ORDERED: NON-FORMULARY ITEM (Potassium Chloride [Potassium Chloride] 8 MEQ) PO SCH (10:00)
[2019-12-03] MEDS ORDERED: VITAMIN B COMPLEX PO SCH (10:00)
[2019-12-03 11:56] LABS: Eosinophil 3 % (0.00-3.0); Lymphocytes 37 % (24-44); Monocyte 3 % (0.0-12.0); Neutrophils 57 % (36.0-66.0); Total Cells Counted 100
[2019-12-03 11:57] LABS: Platelet Estimate NORMAL (NORMAL)
--- NOTE | 2019-12-03 11:59 | PCM.NOTE ---
Date and Time: 12/03/19 1155 Subjective Assessment: Pt is tolerating some clear liquids but does have persistent nausea. Was unable to tolerate full liquids this morning. Still c/o 5/10 R groin pain. Was transitioned to po pain meds last night. - Review of Systems Constitutional: No Fever Abdominal/Gastrointestinal: Abdominal Pain Objective Exam General Appearance: mild distress, alert Neurologic Exam: oriented x 3, cooperative Skin Exam: normal color, warm, dry, No rash Ears, Nose, Throat Exam: moist mucous membranes Neck Exam: normal inspection Respiratory Exam: normal breath sounds, lungs clear, No crackles/rales, No rhonchi, No wheezing Cardiovascular Exam: regular rate/rhythm, normal heart sounds, No murmur Gastrointestinal/Abdomen Exam: soft, normal bowel sounds, tenderness (RLQ), No distention, No mass, No guarding, No rebound Extremity Exam: normal inspection, No pedal edema, No swelling Back Exam: normal inspection, No rash OBJECTIVE DATA Vital Signs: Vital Signs - 24 hr Temp Pulse Resp BP BP Pulse Ox 12/03/19 08:03 92 L 12/03/19 08:00 99.2 F 78 20 111/53 98 12/03/19 04:00 99.1 F 84 18 125/56 95 12/03/19 00:00 98.8 F 89 16 119/60 95 12/02/19 20:39 95 12/02/19 20:00 99.0 F 86 20 115/55 130/60 97 12/02/19 17:07 97 12/02/19 16:00 99.1 F 86 16 129/59 97 Pain Assessment - Last Documented Pain Intensity 6 Pain Scale Used [facility] Intake and Output: Intake & Output 11/30/19 12/01/19 12/02/19 12/03/19 11:59 11:59 11:59 11:59 Intake Total 835 1264 3245 Output Total 1150 1050 4350 Balance -315 214 -1105 Weight 80.8 kg 80.8 kg Lab Results: Accuchecks Date 12/02/19 Time 11:30 Lab Results-Last 24 Hours 12/02/19 12/03/19 12/03/19 Range/Units 05:00 05:45 05:45 WBC 6.1 (4.0-10.5) K/mm3 RBC 3.47 L (4.1-5.4) M/mm3 Hgb 11.3 L (12.0-16.0) gm/dl Hct 35.2 (35-47) % MCV 101.4 H (78-100) fl MCH 32.6 H (26-32) pg MCHC 32.1 (32-36) g/dl RDW 12.8 (11.5-14.0) % Plt Count 275 (150-450) K/mm3 MPV 8.5 (7.5-11.0) fl Sodium 138 (137-145) mmol/L Potassium 4.6 (3.5-5.1) mmol/L Chloride 106 (98-107) mmol/L Carbon Dioxide 27 (22-30) mmol/L Anion Gap 9.0 (5-15) MEQ/L BUN 3 L (7-17) mg/dL Creatinine 0.46 L (0.52-1.04) mg/dL Estimated GFR > 60.0 ML/MIN Glucose 132 H (74-106) mg/dL Hemoglobin A1c 5.36 (4.5-6.0) % Calcium 7.8 L (8.4-10.2) mg/dL Total Bilirubin 0.30 (0.2-1.3) mg/dL AST 70 H (14-36) U/L ALT 146 H (0-35) U/L Alkaline Phosphatase 88 (38-126) U/L Serum Total Protein 5.8 L (6.3-8.2) g/dL Albumin 2.8 L (3.5-5.0) g/dL Radiology Exams: Radiology Procedures Category Date Time Status ABDOMEN 2 VIEW Urgent Exams 12/03/19 12:00 Ordered SMALL BOWEL SERIES Urgent Exams 12/02/19 06:00 Completed Multi-Disciplinary Progress Notes: Multi-Disciplinary Progress Notes 12/02/19 12:12 Case Management Note by Edna Paulino PATIENT CONTINUES TO DENY ANY NEEDS REGARDING DC AT THIS TIME. SHE STATES SHE HAS FAMILY AND FRIEND SUPPORT IF NEEDED Initialized on 12/02/19 12:12 - END OF NOTE Assessment/Plan (1) Abdominal pain Current Visit: Yes Status: Acute Qualifiers: Abdominal location: generalized Qualified Code(s): R10.84 - Generalized abdominal pain Assessment & Plan: Persistent in RLQ. no hernia on exam, although was visible on CT scan. Small bowel follow through nl. Surgery following, thank you. Await their guidance regarding discharge to home. Code(s): R10.9 - UNSPECIFIED ABDOMINAL PAIN (2) Small bowel obstruction Current Visit: Yes Status: Resolved Code(s): K56.609 - UNSP INTESTNL OBST, UNSP TO PARTIAL VERSUS COMPLETE OBST (3) Inguinal hernia Current Visit: Yes Status: Chronic Qualifiers: Obstruction and gangrene presence: without obstruction or gangrene Laterality: unilateral Recurrence: non-recurrent Qualified Code(s): K40.90 - Unilateral inguinal hernia, without obstruction or gangrene, not specified as recurrent Code(s): K40.90 - UNIL INGUINAL HERNIA, W/O OBST OR GANGR, NOT SPCF RECUR (4) Elevated LFTs Current Visit: Yes Status: Acute Assessment & Plan: much improved, AST down to 70 from high of 536, and ALT down to 146 from high of 375. Code(s): R79.89 - OTHER SPECIFIED ABNORMAL FINDINGS OF BLOOD CHEMISTRY (5) Hiatal hernia Current Visit: Yes Status: Chronic Code(s): K44.9 - DIAPHRAGMATIC HERNIA WITHOUT OBSTRUCTION OR GANGRENE (6) UTI (urinary tract infection) Current Visit: Yes Status: Ruled-out Qualifiers: Urinary tract infection type: acute cystitis Hematuria presence: without hematuria Qualified Code(s): N30.00 - Acute cystitis without hematuria Code(s): N39.0 - URINARY TRACT INFECTION, SITE NOT SPECIFIED
[2019-12-03] MEDS: Zofran 4 MG/2 ML VIAL IV PRN (16:10)
--- NOTE | 2019-12-03 20:05 | XRAY ---
Indication: Constipation. KUB nonacute and nonobstructed with barium in colon from small bowel follow-through exam one day earlier. Little to no fecal debris. Incidental cholecystectomy clips and IVC filter in situ. Osseous structures intact. Comment: Preliminary interpretation was made by [facility]. No critical discrepancy.
[2019-12-03] MEDS: Ambien 10 MG PO PRN (21:30)
[2019-12-04] MEDS: NORCO 7.5/325 MG TAB PO PRN ×2 (02:21→10:51)
[2019-12-04] MEDS: D5W/0.45NS W/ 20mEq KCl 1000 ML 1,000 ML IV SCH (02:22)
[2019-12-04 05:43] LABS: Hematocrit 33.3 % (35-47); Hemoglobin 10.7 gm/dl (12.0-16.0); Mean Cell Volume 102.5 fl (78-100); Mean Corpuscular Hemoglobin 32.9 pg (26-32); Mean Corpuscular Hgb Concent. 32.1 g/dl (32-36); Mean Platelet Volume 8.8 fl (7.5-11.0); Platelet Count 289 K/mm3 (150-450); Red Blood Count 3.25 M/mm3 (4.1-5.4); Red Cell Distribution Width 12.8 % (11.5-14.0); White Blood Count 5.6 K/mm3 (4.0-10.5)
[2019-12-04 05:52] LABS: ALBUMIN 2.8 g/dL (3.5-5.0); ALKALINE PHOSPHATASE 81 U/L (38-126); ANION GAP 8.1 MEQ/L (5-15); BLOOD UREA NITROGEN 4 mg/dL (7-17); CHLORIDE 107 mmol/L (98-107); Calcium 7.7 mg/dL (8.4-10.2); Carbon Dioxide 27 mmol/L (22-30); Creatinine 1 0.45 mg/dL (0.52-1.04); Glucose 142 mg/dL (74-106); Potassium 4.7 mmol/L (3.5-5.1); SGOT/AST 40 U/L (14-36); SGPT/ALT 100 U/L (0-35); SODIUM 137 mmol/L (137-145); Total Protein 5.7 g/dL (6.3-8.2)
[2019-12-04] MEDS: Protonix 40MG Tablet PO SCH (09:33)
[2019-12-04] MEDS: MYSOLINE 50MG PO SCH ×3 (09:33→22:03)
--- NOTE | 2019-12-04 13:26 | PCM.NOTE ---
Date and Time: 12/04/19 1324 Subjective Assessment: She is still having R groin pain, currently less d/t pain medicine given within the hour. She is NPO in hopes of having hernia repair today, and states she's not even hungry or thirsty. - Review of Systems Constitutional: No Fever Abdominal/Gastrointestinal: Abdominal Pain Objective Exam General Appearance: mild distress, alert Neurologic Exam: oriented x 3, cooperative Skin Exam: normal color, warm, dry, No rash Ears, Nose, Throat Exam: moist mucous membranes Neck Exam: normal inspection Respiratory Exam: normal breath sounds, lungs clear, No crackles/rales, No rhonchi, No wheezing Cardiovascular Exam: regular rate/rhythm, normal heart sounds, No murmur Gastrointestinal/Abdomen Exam: soft, tenderness (RLQ), No normal bowel sounds ( hypoactive but present), No distention, No mass, No guarding, No rebound Extremity Exam: normal inspection, swelling (1+ pretibial edema bilat) Back Exam: normal inspection, No rash OBJECTIVE DATA Vital Signs: Vital Signs - 24 hr Temp Pulse Resp BP Pulse Ox 12/04/19 11:34 98.6 F 74 18 119/56 98 12/04/19 08:00 98.5 F 73 18 131/59 96 12/04/19 04:00 98.9 F 80 18 111/56 96 12/03/19 23:56 99.1 F 84 18 130/58 97 12/03/19 20:00 99.3 F 83 20 107/53 96 12/03/19 19:33 96 12/03/19 16:00 99.1 F 85 18 120/58 99 Pain Assessment - Last Documented Pain Intensity 7 Pain Scale Used 0-10 Pain Scale Intake and Output: Intake & Output 12/02/19 12/03/19 12/04/19 12/05/19 11:59 11:59 11:59 11:59 Intake Total 1264 3245 4973 Output Total 1050 4350 3350 Balance 214 -1105 1623 Weight 80.8 kg Lab Results: Lab Results-Last 24 Hours 12/04/19 12/04/19 Range/Units 05:30 05:30 WBC 5.6 (4.0-10.5) K/mm3 RBC 3.25 L (4.1-5.4) M/mm3 Hgb 10.7 L (12.0-16.0) gm/dl Hct 33.3 L (35-47) % MCV 102.5 H (78-100) fl MCH 32.9 H (26-32) pg MCHC 32.1 (32-36) g/dl RDW 12.8 (11.5-14.0) % Plt Count 289 (150-450) K/mm3 MPV 8.8 (7.5-11.0) fl Sodium 137 (137-145) mmol/L Potassium 4.7 (3.5-5.1) mmol/L Chloride 107 (98-107) mmol/L Carbon Dioxide 27 (22-30) mmol/L Anion Gap 8.1 (5-15) MEQ/L BUN 4 L (7-17) mg/dL Creatinine 0.45 L (0.52-1.04) mg/dL Estimated GFR > 60.0 ML/MIN Glucose 142 H (74-106) mg/dL Calcium 7.7 L (8.4-10.2) mg/dL Total Bilirubin 0.30 (0.2-1.3) mg/dL AST 40 H (14-36) U/L ALT 100 H (0-35) U/L Alkaline Phosphatase 81 (38-126) U/L Serum Total Protein 5.7 L (6.3-8.2) g/dL Albumin 2.8 L (3.5-5.0) g/dL Radiology Exams: Radiology Procedures Category Date Time Status ABDOMEN 2 VIEW Urgent Exams 12/03/19 12:00 Completed Assessment/Plan (1) Abdominal pain Current Visit: Yes Status: Acute Qualifiers: Abdominal location: generalized Qualified Code(s): R10.84 - Generalized abdominal pain Assessment & Plan: with hernia, to be repaired by Dr. Alonzo today if his schedule permits, thank you. Pt is NPO. Code(s): R10.9 - UNSPECIFIED ABDOMINAL PAIN (2) Small bowel obstruction Current Visit: Yes Status: Suspected Assessment & Plan: Last BM was a small amount with enema 2d ago. Not passing much gas. Code(s): K56.609 - UNSP INTESTNL OBST, UNSP TO PARTIAL VERSUS COMPLETE OBST (3) Inguinal hernia Current Visit: Yes Status: Chronic Qualifiers: Obstruction and gangrene presence: without obstruction or gangrene Laterality: unilateral Recurrence: non-recurrent Qualified Code(s): K40.90 - Unilateral inguinal hernia, without obstruction or gangrene, not specified as recurrent Code(s): K40.90 - UNIL INGUINAL HERNIA, W/O OBST OR GANGR, NOT SPCF RECUR (4) Elevated LFTs Current Visit: Yes Status: Acute Assessment & Plan: much improved, AST down to 40 and ALT down to 100. Code(s): R79.89 - OTHER SPECIFIED ABNORMAL FINDINGS OF BLOOD CHEMISTRY (5) Hiatal hernia Current Visit: Yes Status: Chronic Code(s): K44.9 - DIAPHRAGMATIC HERNIA WITHOUT OBSTRUCTION OR GANGRENE
[2019-12-04] MEDS ORDERED: Lactated Ringers 1,000 ML IV SCH (14:00)
[2019-12-04] MEDS ORDERED: CLINDAMYCIN-D5W 900 MG/50 ML*** 900 MG/50 ML BAG IV SCH (14:00)
[2019-12-04] MEDS ORDERED: Quelicin Fliptop 200 MG/10 ML ONE (15:15)
[2019-12-04] MEDS ORDERED: Zemuron 100 MG/10 ML ONE (15:15)
[2019-12-04] MEDS ORDERED: Versed 2 MG/2 ML Injection ONE (15:15)
[2019-12-04] MEDS ORDERED: SUBLIMAZE 250 MCG/5 ML ONE (15:15)
[2019-12-04] MEDS ORDERED: DIPRIVAN 200 MG/20 ML IV ONE (15:15)
[2019-12-04] MEDS ORDERED: Lactated Ringers 2,000 ML IV ONE (16:06)
[2019-12-04] MEDS ORDERED: Sensorcaine 0.25% 10 ML ONE (16:06)
[2019-12-04] MEDS ORDERED: DILAUDID 2 MG INJECTION ONE ×2 (16:43→18:05)
[2019-12-04] MEDS ORDERED: MARCAINE 0.5%-EPI 1:200,000 VL IJ ONE (17:26)
[2019-12-04] MEDS ORDERED: Marcaine 0.5%/Epinephrine 10 ML ONE (17:26)
[2019-12-04] MEDS ORDERED: BRIDION 200MG/2ML IV ONE (17:28)
[2019-12-04] MEDS ORDERED: SUBLIMAZE 100 MCG/2 ML ONE (18:05)
[2019-12-04 19:18] LABS: Appearance CLEAR (CLEAR); Bilirubin NEGATIVE (NEGATIVE); Blood NEGATIVE Ery/ul (0-5); Glucose NEGATIVE (NEGATIVE); Ketones NEGATIVE (NEGATIVE); Leukocyte Esterase NEGATIVE (NEGATIVE); Mucus SLIGHT /HPF (NEGATIVE); Nitrite NEGATIVE (NEGATIVE); Protein,Urine Dip NEGATIVE (Negative); Specific Gravity 1.006 (1.005-1.025); Urobilinogen NEGATIVE mg/dL (0-1)
[2019-12-04 19:48] LABS: Bacteria NONE SEEN /HPF (NEGATIVE); WBC NONE SEEN /HPF (0-5)
[2019-12-04] MEDS: Zestril 20 MG PO SCH (20:01)
[2019-12-04] MEDS: MORPHINE SULFATE 4 MG INJ IV PRN ×2 (20:40→22:49)
[2019-12-04] MEDS: Zofran 4 MG/2 ML VIAL IV PRN (20:40)
[2019-12-04] MEDS: NYSTOP 30 GM CREAM TOP PRN (22:04)
[2019-12-04] MEDS: CLINDAMYCIN-D5W 900 MG/50 ML*** 900 MG/50 ML BAG IV SCH (22:04)
[2019-12-04] MEDS: Tums EX 750 MG PO PRN (22:06)
[2019-12-04] MEDS: Sodium Chloride 0.9% 1000 ML 1,000 ML IV SCH (23:26)
[2019-12-05] MEDS: MORPHINE SULFATE 4 MG INJ IV PRN ×3 (01:51→07:29)
[2019-12-05] MEDS: ceLEXa 20 MG PO SCH ×2 (01:52→10:31)
[2019-12-05] MEDS: ELAVIL 25 MG PO SCH ×2 (01:52→10:30)
[2019-12-05] MEDS: VITA-BEE WITH C PO SCH ×2 (01:53→10:28)
[2019-12-05] MEDS: Klor Con 10 MEQ PO SCH ×2 (01:53→10:29)
[2019-12-05] MEDS: Zofran 4 MG/2 ML VIAL IV PRN (02:56)
[2019-12-05] MEDS: Tums EX 750 MG PO PRN (03:10)
[2019-12-05 04:45] LABS: Hematocrit 34.4 % (35-47); Hemoglobin 11.2 gm/dl (12.0-16.0); Mean Cell Volume 100.9 fl (78-100); Mean Corpuscular Hemoglobin 32.8 pg (26-32); Mean Corpuscular Hgb Concent. 32.6 g/dl (32-36); Mean Platelet Volume 8.7 fl (7.5-11.0); Platelet Count 284 K/mm3 (150-450); Red Blood Count 3.41 M/mm3 (4.1-5.4); Red Cell Distribution Width 12.4 % (11.5-14.0)
[2019-12-05 04:58] LABS: ALKALINE PHOSPHATASE 168 U/L (38-126); ANION GAP 7.4 MEQ/L (5-15); BLOOD UREA NITROGEN 3 mg/dL (7-17); CHLORIDE 100 mmol/L (98-107); Calcium 8.2 mg/dL (8.4-10.2); Carbon Dioxide 29 mmol/L (22-30); Creatinine 1 0.39 mg/dL (0.52-1.04); Glucose 149 mg/dL (74-106); Potassium 4.5 mmol/L (3.5-5.1); SGOT/AST 326 U/L (14-36); SGPT/ALT 288 U/L (0-35); SODIUM 132 mmol/L (137-145)
[2019-12-05] MEDS ORDERED: TYLENOL 325 MG PO PRN (07:40)
--- NOTE | 2019-12-05 09:23 | OP ---
SURGERY DATE/TIME: 12/04/2019 1540 PREOPERATIVE DIAGNOSIS: Symptomatic persistent painful ventral incisional hernia, history of some incarcerated bowel. POSTOPERATIVE DIAGNOSES: 1) Symptomatic persistent painful ventral incisional hernia, history of some incarcerated bowel, incarcerated ventral incisional hernia. 2) Separate site right inguinal hernia. PROCEDURES: 1) Repair of incarcerated ventral incisional hernia with mesh. 2) Repair of right inguinal hernia with mesh (separate site). SURGEON: Dr. Shady Alonzo. ANESTHESIA: General. ESTIMATED BLOOD LOSS: Minimal. INDICATIONS: As noted above. Risks and benefits explained in detail and not limited to, including the risk of bleeding or infection, risk of hernia recurrence, risk of mesh infection possibly requiring removal, possible need for bowel resection, risk of anastomotic leak or fistula formation, risk of bowel obstruction, overall risk of hernia recurrence, possibility her aches and pains may not improve fixing the hernia, as well as general risk of anesthesia, deep venous thrombosis, pulmonary embolism, pneumonia, perioperative risks of aches, pains, burning or numbness lower abdomen, hip or down towards the labial or thigh area possible assisted or chronic and up to 10 or 12% or higher possibly requiring assisted medical or pain management services. She understands as well as overall risk of recurrence but not limited to. Consent obtained. DESCRIPTION OF PROCEDURE AND FINDINGS: The patient is taken to the operating room. General anesthesia induced. Abdomen prepped and draped in the usual sterile fashion. After official time out and no disagreement with planned procedure, a transverse incision is made in her old incision from past hysterectomy. She had past appendectomy as well. Dissection carried down. She seemed to have a smaller right inguinal hernia that was separate from the one that was causing her symptoms and showing up on the CT scan this was a ventral incisional hernia. It was more cephalad and more laterally closer to the anterior iliac spine area. This carefully was . The incarcerated bowel contents were reduced back down in the abdomen. The hernia sac was reduced back down in the abdomen. It was felt this would benefit from mesh repair to avoid causing issues, compression on any exterior nerve structures. It was elected to use 4.3 Ventralex given the defect. It was carefully placed superiorly and medially with 0 Prolene in interrupted fashion secured with some Vicryl inferior to avoid any scar formation within the inguinal nerves. The attenuated tissue was then closed over the top with some 0 Vicryl. Attention is then turned to the inguinal hernia. The external oblique had been split in the direction of its fibers. Iliohypogastric nerve and ilioinguinal nerve branches were visible and carefully protected. The round ligament was divided and the direct and indirect hernia were reduced back down in the abdomen with the inguinal floor imbricated back downwards with 0 PDS carefully protecting the visible nerve branches. Again, this was definitely a separate site and this was not is where she was getting incarcerated bowel but was a hernia that felt needed to be repaired. Therefore it was felt this patient would benefit from mesh down in this area. A 2 x 4 piece of mesh was cut to appropriate dimensions and secured to the fascia overlying pubic tubercle with 0 Prolene run along Flynn's ligament along the shelving portion of inguinal ligament laterally past the internal ring area. 0 Prolene used to transfix to rectus fascia medially, 0 Vicryl used to transfix this to the aponeurosis of the internal oblique superiorly. The cephalad part was transfixed to the external oblique in a tension free manner. Copious amount of irrigation irritating until clear. External oblique closed with 0 Vicryl carefully protecting the visible nerve branches. 0.25% Marcaine local injected along the anterior iliac spine area/origin of the inguinal nerve area. Lico fascia closed with 3-0 Vicryl. Subcu closed with 3-0 Vicryl. Skin closed with 4-0 Vicryl. Steri-Strips and sterile dressing applied. Her skin was very thin. She is to be given Dermabond dressing followed by Steri-Strips, Mastisol and a pressure dressing. There were no immediate complications. There was no family to discuss the findings with out in the waiting area. It should be noted this patient had originally been seen by Dr. Zachariah Perez on and was not updated until he checked out the patient on rounds on Thursday when she was eating chicken salad. She had significant pain. He felt she would benefit from repair at this time.
--- NOTE | 2019-12-05 10:07 | XRAY ---
Indication: Constipation. Status post hernia repair postop day 3. Comparison: November 30, 2019. PA/lateral chest better inflated again demonstrating normal heart and lungs with stable calcified granulomas, right axilla/breast postsurgical changes, and minimal remote T12/L1 fractures. No new/acute findings. KUB reported separately.
--- NOTE | 2019-12-05 10:10 | XRAY ---
Indication: Constipation. Status post hernia repair postop day 3. Comparison: December 03, 2019. KUB remains nonacute and nonobstructed with minimal clearing of colonic barium. Barium again obscures solid organs with stable cholecystectomy clips and IVC filter. Osseous structures remain intact.
[2019-12-05] MEDS: NYSTOP 30 GM CREAM TOP PRN ×2 (10:17→21:13)
[2019-12-05] MEDS: ENOXAPARIN SODIUM SQ SCH (10:26)
[2019-12-05] MEDS: Protonix 40MG Tablet PO SCH (10:29)
[2019-12-05] MEDS: MYSOLINE 50MG PO SCH ×3 (10:30→21:12)
[2019-12-05] MEDS: Zestril 20 MG PO SCH (10:30)
[2019-12-05] MEDS: DULCOLAX 5 MG PO SCH (10:41)
[2019-12-05] MEDS: NORCO 5/325 MG PO PRN ×3 (10:41→19:35)
[2019-12-05] MEDS: CLINDAMYCIN-D5W 900 MG/50 ML*** 900 MG/50 ML BAG IV SCH ×2 (13:24→21:11)
--- NOTE | 2019-12-05 18:37 | PCM.NOTE ---
Date and Time: 12/05/191830 Subjective Assessment: 64 yr old female seen and examined this am. Patient reports that she is feeling ok. She has been tolerating PO fluids and reported that she would like to advance her diet if possible. She states she was told she was told she could go home once her "bowels moved". She has been using her incentive spirometry as instructed and was even waking up in the night and using it. She denies any leg swelling. She reports tenderness at incision site. She reports mild abdominal pain. Denies chest pain or increased shortness of breath. She reports she has been getting up to go to the bathroom without difficulty. She has not seen anyone recently for her Crohns and reports she was unable to afford the medications for her treatment as they would cost anywhere from 600-1500 a month. - Review of Systems All Other Systems: Reviewed and Negative (Except what is listed in HPI) Objective Exam General Appearance: no apparent distress, mild distress, obese, other (Patient sitting upright sipping on fluids.) Neurologic Exam: alert, oriented x 3, cooperative, normal mood/affect Skin Exam: normal color, warm, dry Eye Exam: eyes nml inspection, No scleral icterus Ears, Nose, Throat Exam: moist mucous membranes Neck Exam: normal inspection Respiratory Exam: diminished breath sounds (Slightly), No respiratory distress, No accessory muscle use, No crackles/rales, No rhonchi, No wheezing Cardiovascular Exam: regular rate/rhythm, normal heart sounds, No murmur, No friction rub, No edema Gastrointestinal/Abdomen Exam: soft, other (Hypoactive bowel sounds. Patient's dressing intact with tenderness over incision site. The rest of the abdomen was not tender with palpation) Extremity Exam: normal inspection Pelvic Exam: deferred Rectal Exam: deferred OBJECTIVE DATA Vital Signs: Vital Signs - 24 hr Temp Pulse Resp BP Pulse Ox 12/05/19 16:00 98.7 F 92 H 16 121/56 97 12/05/19 12:07 98.9 F 83 16 120/54 99 12/05/19 07:53 98.7 F 90 16 131/61 98 12/05/19 07:30 94 L 12/05/19 03:15 98 F 86 16 174/80 97 12/04/19 23:41 97.3 F 88 16 142/68 99 12/04/19 21:15 97.4 F 98 H 16 164/70 98 12/04/19 20:15 97.5 F 100 H 14 184/72 97 12/04/19 19:45 97.2 F 105 H 18 177/77 97 12/04/19 19:20 96 12/04/19 19:14 86 L 12/04/19 19:00 97.3 F 92 H 16 148/63 99 Pain Assessment - Last Documented Pain Intensity 3 Pain Scale Used 0-10 Pain Scale Intake and Output: Intake & Output 12/03/19 12/04/19 12/05/19 12/06/19 11:59 11:59 11:59 11:59 Intake Total 3245 4973 1017 600 Output Total 4350 3350 4550 300 Balance -1105 1623 -0133 300 Weight 80.8 kg Lab Results: Lab Results-Last 24 Hours 12/04/19 12/05/19 12/05/19 Range/Units 15:58 04:18 04:18 WBC 11.0 H (4.0-10.5) K/mm3 RBC 3.41 L (4.1-5.4) M/mm3 Hgb 11.2 L (12.0-16.0) gm/dl Hct 34.4 L (35-47) % MCV 100.9 H (78-100) fl MCH 32.8 H (26-32) pg MCHC 32.6 (32-36) g/dl RDW 12.4 (11.5-14.0) % Plt Count 284 (150-450) K/mm3 MPV 8.7 (7.5-11.0) fl Sodium 132 L (137-145) mmol/L Potassium 4.5 (3.5-5.1) mmol/L Chloride 100 (98-107) mmol/L Carbon Dioxide 29 (22-30) mmol/L Anion Gap 7.4 (5-15) MEQ/L BUN 3 L (7-17) mg/dL Creatinine 0.39 L (0.52-1.04) mg/dL Estimated GFR > 60.0 ML/MIN Glucose 149 H (74-106) mg/dL Calcium 8.2 L (8.4-10.2) mg/dL Total Bilirubin 0.30 (0.2-1.3) mg/dL AST 326 H (14-36) U/L ALT 288 H (0-35) U/L Alkaline Phosphatase 168 H (38-126) U/L Serum Total Protein 6.0 L (6.3-8.2) g/dL Albumin 3.0 L (3.5-5.0) g/dL Urine Color STRAW (YELLOW) Urine Appearance CLEAR (CLEAR) Urine pH 7.0 (5-6) Ur Specific [place] 1.006 (1.005-1.025) Urine Protein NEGATIVE (Negative) Urine Ketones NEGATIVE (NEGATIVE) Urine Blood NEGATIVE (0-5) [place]/ul Urine Nitrite NEGATIVE (NEGATIVE) Urine Bilirubin NEGATIVE (NEGATIVE) Urine Urobilinogen NEGATIVE (0-1) mg/dL Ur Leukocyte Esterase NEGATIVE (NEGATIVE) Urine WBC (Auto) NONE SEEN (0-5) /HPF Urine RBC (Auto) NONE (0-2) /HPF U Epithel Cells (Auto) NONE (FEW) /HPF Urine Bacteria (Auto) NONE SEEN (NEGATIVE) /HPF Urine Mucus (Auto) SLIGHT (NEGATIVE) /HPF Urine Glucose NEGATIVE (NEGATIVE) mg/dL Radiology Exams: Radiology Procedures Category Date Time Status CHEST 2 VIEWS (PA AND LAT) Routine Exams 12/05/19 09:53 Completed KUB Routine Exams 12/05/19 09:53 Completed Multi-Disciplinary Progress Notes: Multi-Disciplinary Progress Notes 12/05/19 15:14 Respiratory Note by Dominga Bender PT DONIG IS Q1HR [id number] WILL MAKE SELF DIRECTED CARE Initialized on 12/05/19 15:14 - END OF NOTE 12/05/19 09:49 Nutrition Note by Erlinda Montoya F/u Note: Note hernia repair 12/03. Po intake resumed; receiving a regular diet with 100% po intake at breakfast today. Stable weight. Labs 12/04= Na 132, BUN 3, Cr 0.39 , glu 149, elevated liver enzymes, alb 3.0, hgb 11.2, hct 34.4, mcv 100.9. Recommend to con't with regular diet. Goals: #1) maintain po intake >=75% Will monitor and f/u prn. TJAIR Hernandez Initialized on 12/05/19 09:49 - END OF NOTE 12/05/19 09:30 Case Management Note by Edna Paulino S/W PATIENT- SHE CONTINUES TO DENY ANY NEEDS REGARDING DC. 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 ALSO S/W HER ABOUT AFFORDING HER MEDS ( DC PLANNING CONSULT WAS PLACED). PATIENT REPORTS SHE CAN AFFORD ALL OF HER MEDICATIONS EXCEPT THE ARGENIS/STELARA . SHE SAID SHE IS WORKING WITH THE INSURANCE COMPANY ABOUT THIS. WHEN ASKED IF THERE WAS ANYTHING I NEEDED TO DO TO ASSIST WITH THIS SHE SHOOK HER HEAD NO AND SAID "THEY ARE WORKING ON IT". Initialized on 12/05/19 09:30 - END OF NOTE Assessment/Plan (1) Inguinal hernia Current Visit: Yes Status: Chronic Qualifiers: Obstruction and gangrene presence: without obstruction or gangrene Laterality: unilateral Recurrence: non-recurrent Qualified Code(s): K40.90 - Unilateral inguinal hernia, without obstruction or gangrene, not specified as recurrent Assessment & Plan: Patient s/p day 1 surgical repair performed yesterday. Patient reports that she is still having pain at incision site. Patient has been getting pain medication post op. Patient still has not had BM and KUB x2 has shown that barium is still present from her GI study and has not moved much. Added ducolax for suspected opiod induced constipation. Surgery advanced her diet to regular diet. Will continue to monitor patient and plan for discharge once patient has BMs and can tolerated PO diet. Code(s): K40.90 - UNIL INGUINAL HERNIA, W/O OBST OR GANGR, NOT SPCF RECUR (2) Ventral hernia Current Visit: Yes Status: Acute Assessment & Plan: Same assessment and plan as above. Code(s): K43.9 - VENTRAL HERNIA WITHOUT OBSTRUCTION OR GANGRENE (3) Abdominal pain Current Visit: Yes Status: Acute Qualifiers: Abdominal location: generalized Qualified Code(s): R10.84 - Generalized abdominal pain Assessment & Plan: Patient has pain medication for abdominal pain. She is starting to tolerate PO diet. Will continue to monitor for abdominal pain. Code(s): R10.9 - UNSPECIFIED ABDOMINAL PAIN (4) Small bowel obstruction Current Visit: Yes Status: Suspected Assessment & Plan: Patient's initial imaging indicated partial small bowel obstruction. Patient has hx of crohns and gastric bypass. Patient is s/p day 1 ventral and inguinal hernia repair. She appears to be doing well following surgery. Code(s): K56.609 - UNSP INTESTNL OBST, UNSP TO PARTIAL VERSUS COMPLETE OBST (5) Crohn disease Current Visit: Yes Status: Acute Assessment & Plan: Patient reports that this has gone untreated as she has not been able to afford the medications. Will get patient referred to GI doctor and have case management help with financial aspect of her treatment for Crohns Code(s): K50.90 - CROHN'S DISEASE, UNSPECIFIED, WITHOUT COMPLICATIONS
[2019-12-05] MEDS: Ambien 10 MG PO PRN (21:12)
[2019-12-06] MEDS: NORCO 5/325 MG PO PRN ×3 (02:26→12:58)
[2019-12-06 05:58] LABS: Hemoglobin 10.5 gm/dl (12.0-16.0); Mean Cell Volume 101.3 fl (78-100); Mean Corpuscular Hemoglobin 33.2 pg (26-32); Mean Corpuscular Hgb Concent. 32.8 g/dl (32-36); Mean Platelet Volume 8.9 fl (7.5-11.0); Platelet Count 279 K/mm3 (150-450); Red Blood Count 3.16 M/mm3 (4.1-5.4); Red Cell Distribution Width 12.7 % (11.5-14.0); White Blood Count 6.9 K/mm3 (4.0-10.5)
[2019-12-06 06:08] LABS: ALBUMIN 2.6 g/dL (3.5-5.0); ALKALINE PHOSPHATASE 115 U/L (38-126); ANION GAP 10.2 MEQ/L (5-15); BLOOD UREA NITROGEN 6 mg/dL (7-17); CHLORIDE 105 mmol/L (98-107); Calcium 8.2 mg/dL (8.4-10.2); Carbon Dioxide 29 mmol/L (22-30); Creatinine 1 0.49 mg/dL (0.52-1.04); Glucose 104 mg/dL (74-106); Potassium 4.3 mmol/L (3.5-5.1); SGOT/AST 85 U/L (14-36); SGPT/ALT 157 U/L (0-35); SODIUM 140 mmol/L (137-145); Total Protein 5.5 g/dL (6.3-8.2)
[2019-12-06] MEDS: CLINDAMYCIN-D5W 900 MG/50 ML*** 900 MG/50 ML BAG IV SCH (06:20)
[2019-12-06] MEDS ORDERED: Sodium Chloride 0.9% 1000 ML 1,000 ML IV SCH (09:00)
--- NOTE | 2019-12-06 09:38 | XRAY ---
Indication: Constipation. Comparison: One day earlier. KUB remains nonacute and nonobstructed. Continued clearing of colonic barium with mild residual. Solid organs unremarkable with stable cholecystectomy and IVC filter.
[2019-12-06] MEDS: MYSOLINE 50MG PO SCH (10:30)
[2019-12-06] MEDS: DULCOLAX 5 MG PO SCH (10:30)
[2019-12-06] MEDS: Zestril 20 MG PO SCH (10:32)
[2019-12-06] MEDS: ceLEXa 20 MG PO SCH (10:32)
[2019-12-06] MEDS: Klor Con 10 MEQ PO SCH (10:32)
[2019-12-06] MEDS: ELAVIL 25 MG PO SCH (10:33)
[2019-12-06] MEDS: ENOXAPARIN SODIUM SQ SCH (10:33)
[2019-12-06] MEDS: Protonix 40MG Tablet PO SCH (10:33)
[2019-12-06] MEDS: Sodium Chloride 0.9% 1000 ML 1,000 ML IV SCH (10:36)
[2019-12-06 12:41] VITALS: PULSE 93
[2019-12-06] MEDS: Tums EX 750 MG PO PRN (13:01)
[2019-12-06] MEDS: VITA-BEE WITH C PO SCH (13:07)
[2019-12-06 13:13] VITALS: BP 131/59; O2SAT 97
== END 2019-12-06 16:55 | disposition home or self-care (01) | DRG 354 ==
LOC: ED 15:12 → MED SURG 19:36 → OBSVTOIN 12-01 08:33
PROVIDERS: ADMIT Family Medicine; ATTEND Family Medicine
PROC: 0WUF0JZ Supplement Abdominal Wall with Synthetic Substitute, Open Approach (ICD-10-PCS; principal; 2019-12-04)
DX: K43.0 Incisional hernia with obstruction, without gangrene (principal); K56.609 Unspecified intestinal obstruction, unspecified as to partial versus complete obstruction; N39.0 Urinary tract infection, site not specified; K50.90 Crohn's disease, unspecified, without complications; K44.9 Diaphragmatic hernia without obstruction or gangrene; I10 Essential (primary) hypertension; R07.9 Chest pain, unspecified; Z86.718 Personal history of other venous thrombosis and embolism; Z85.3 Personal history of malignant neoplasm of breast; Z90.11 Acquired absence of right breast and nipple; Z98.84 Bariatric surgery status; Z79.899 Other long term (current) drug therapy; R79.89 Other specified abnormal findings of blood chemistry
CPT/HCPCS: 36000; 36415; 49561; 49568; 64488; 71045; 71046; 74018; 74021; 74177; 74250; 76937; 76942; 80053; 81001; 82150; 82962; 83036; 83690; 84484; 85025; 85027; 87086; 93005; 94762; 96360; 96372; 96374; 96375; 99285; C1781; G0378; J0330; J1170; J1200; J1650; J1956; J2250; J2270; J2405; J2704; J3010; L0625; A9270-GY

== ENCOUNTER 2020-08-22 13:15 | Day surgery (SDC) | payer MEDICARE ==
[2020-08-22] MEDS ORDERED: Xylocaine 1% Vial 30 ML PF IJ ONE (13:16)
[2020-08-22] MEDS ORDERED: Depo-Medrol 40 MG/ML IM ONE (13:16)
[2020-08-22] MEDS ORDERED: BUPIVACAINE 0.5% VIAL IJ ONE (13:16)
[2020-08-22] MEDS ORDERED: Lactated Ringers 1,000 ML IV ONE (15:04)
--- NOTE | 2020-08-22 16:50 | XRAY ---
Indication: Left knee intra-articular injection. Intraoperative fluoroscopy was provided for 9 seconds. Single digital spot image of the left knee demonstrates needle tip projecting over the femur intercondylar notch. Small amount of contrast injected for needle tip placement. Correlate with intraoperative findings/report.
--- NOTE | 2020-08-22 16:50 | XRAY ---
Indication: Right knee intra-articular injection. Intraoperative fluoroscopy was provided for 8 seconds. Single digital spot image of the right knee demonstrates needle tip projecting over the femur intercondylar notch. Small amount of contrast injected for needle tip placement. Correlate with intraoperative findings/report.
--- NOTE | 2020-08-22 16:53 | XRAY ---
8 seconds of fluoroscopy was used during surgery for a right intra-articular knee injection.
--- NOTE | 2020-08-22 16:53 | XRAY ---
9 seconds of fluoroscopy was used during surgery for a left intra-articular knee injection.
== END 2020-08-22 15:25 | disposition home or self-care (01) ==
LOC: SDC-PAIN 13:15
PROVIDERS: ATTEND Psychiatry & Neurology Pain Medicine
DX: M17.0 Bilateral primary osteoarthritis of knee (principal); I10 Essential (primary) hypertension; K50.90 Crohn's disease, unspecified, without complications; M79.7 Fibromyalgia; K21.9 Gastro-esophageal reflux disease without esophagitis; Z85.3 Personal history of malignant neoplasm of breast; G47.30 Sleep apnea, unspecified; R25.1 Tremor, unspecified; Z79.899 Other long term (current) drug therapy
CPT/HCPCS: 20610; 73560; 77002; J1030; J2001; Q9966

== ENCOUNTER 2021-01-24 05:49 | Day surgery (SDC) | payer MEDICARE ==
[2021-01-24] MEDS ORDERED: Lactated Ringers 1,000 ML IV SCH (06:30)
[2021-01-24] MEDS ORDERED: DIPRIVAN 200 MG/20 ML IV ONE (07:26)
[2021-01-24 08:22] VITALS: BP 156/81; PULSE 84; O2SAT 100
--- NOTE | 2021-01-24 15:40 | OP ---
SURGERY DATE: 01/24/2021 SURGERY TIME: 728 PREOPERATIVE DIAGNOSIS: 1. ANEMIA. POSTOPERATIVE DIAGNOSIS: 1. NORMAL EXAM. PROCEDURE: 1. EGD. SPECIMENS: None. ESTIMATED BLOOD LOSS: None. SURGEON: Dr. Alex Gallardo. ANESTHESIA: MAC by Vickey Manuel CRNA. DESCRIPTION OF PROCEDURE: After informed written consent was obtained, the patient was taken to the endoscopy suite. She was placed in the left lateral decubitus position and a bite block was inserted. Anesthesia was titrated to the desired level of consciousness. Then, endoscope was inserted in the posterior oropharynx. Under direct visualization, the esophagus was traversed. Upon entry into the stomach, there was normal rugated mucosa, very small gastric cavity with history of prior gastric bypass emptied directly into the small intestine which had a normal mucosal appearance. There were no lesions or evidence of any bleeding in the visualized small intestine or gastric cavity. Gastroesophageal junction likewise appeared within normal limits on withdrawal. Esophageal mucosa appeared within normal limits as well. The scope was removed and the patient was transferred to the recovery room in good condition.
== END 2021-01-24 08:30 | disposition home or self-care (01) ==
LOC: SDC 05:49
PROVIDERS: ATTEND Family Medicine
DX: D64.9 Anemia, unspecified (principal); Z79.899 Other long term (current) drug therapy
CPT/HCPCS: J2704

== ENCOUNTER 2023-02-11 15:03 | Day surgery (SDC) | payer MEDICARE ==
[2023-02-11] MEDS ORDERED: LIDOCAINE HCL 1% 50 MG/5 ML VL PF IJ ONE (15:04)
[2023-02-11] MEDS ORDERED: ORTHOVISC IU ONE (15:04)
--- NOTE | 2023-02-11 19:21 | XRAY ---
Indication: Left knee injection. Intraoperative fluoroscopy provided for 6 seconds. Single digital spot images submitted for interpretation demonstrates needle tip projecting over the left femur intercondylar notch. Small amount of contrast injected for needle tip placement. Correlate with intraoperative findings/report.
--- NOTE | 2023-02-12 09:05 | XRAY ---
6 seconds of fluoroscopy was used in surgery for a left intra-articular knee injection.
== END 2023-02-11 18:02 | disposition home or self-care (01) ==
LOC: SDC-PAIN 15:03
PROVIDERS: ATTEND Psychiatry & Neurology Pain Medicine
DX: M17.12 Unilateral primary osteoarthritis, left knee (principal); Z79.899 Other long term (current) drug therapy
CPT/HCPCS: 20610; 73560; 77002; 82947; J2001; J7324; Q9966

== ENCOUNTER 2023-02-18 15:09 | Day surgery (SDC) | payer MEDICARE ==
[2023-02-18] MEDS ORDERED: BUPIVACAINE 0.5% VIAL IJ ONE (15:10)
[2023-02-18] MEDS ORDERED: ORTHOVISC IU ONE ×2 (15:10)
--- NOTE | 2023-02-18 20:15 | XRAY ---
Indication: Left knee injection. Intraoperative fluoroscopy provided for 11 seconds. Single digital spot images submitted for interpretation demonstrates needle tip projecting over the left femur intercondylar notch. Small amount of contrast injected for needle tip placement. Correlate with intraoperative findings/report.
--- NOTE | 2023-02-19 12:13 | XRAY ---
11 seconds of fluoroscopy was used in surgery for a left intra-articular knee injection.
== END 2023-02-18 16:36 ==
LOC: SDC-PAIN 15:09
PROVIDERS: ATTEND Psychiatry & Neurology Pain Medicine
DX: M17.12 Unilateral primary osteoarthritis, left knee (principal); Z79.899 Other long term (current) drug therapy
CPT/HCPCS: 20610; 73560; 77002; 82947; J7324

== ENCOUNTER 2023-02-25 14:55 | Day surgery (SDC) | payer MEDICARE ==
[2023-02-25] MEDS ORDERED: ORTHOVISC IU ONE (14:56)
[2023-02-25] MEDS ORDERED: LIDOCAINE HCL 1% 50 MG/5 ML VL PF IJ ONE (14:56)
--- NOTE | 2023-02-25 20:29 | XRAY ---
Indication: Left knee injection. Intraoperative fluoroscopy provided for 9 seconds. Single digital spot image submitted for interpretation demonstrates needle tip projecting over left femur intercondylar notch. Small amount of contrast injected for needle tip placement. Correlate with intraoperative findings/report.
--- NOTE | 2023-02-26 08:48 | XRAY ---
9 seconds of fluoroscopy was used in surgery for a left intra-articular knee injection.
== END 2023-02-25 18:00 | disposition home or self-care (01) ==
LOC: SDC-PAIN 14:55
PROVIDERS: ATTEND Psychiatry & Neurology Pain Medicine
DX: M17.12 Unilateral primary osteoarthritis, left knee (principal); E11.9 Type 2 diabetes mellitus without complications; Z79.899 Other long term (current) drug therapy
CPT/HCPCS: 20610; 73560; 77002; 82947; J2001; J7324; Q9966

== ENCOUNTER 2024-03-31 08:58 | Emergency (ER) | payer MEDICARE ==
[2024-03-31 09:09] VITALS: TEMP 96.8
--- NOTE | 2024-03-31 09:41 | ERPHSYRPT ---
- History of Present Illness Time Seen by Provider: 03/31/24 09:10 Source: patient Exam Limitations: no limitations Patient Subjective Stated Complaint: "I fell and hit my head in the lobby" Triage Nursing Assessment: Pt was at hospital for outpatient lipid panel lab draw, which she had been fasting for. Pt is known diabetic. Fell in lobby after outpatient lab testing, no LOC, no dizziness or lightheadedness. Complains of left headche and left shoulder pain. Shoulder has full ROM. Small 0.3mm laceration above left eyebrow. Bleeding controlled. Pt is alert and oriented x 3. Skin is pink, warm, and dry. Respirations are easy. No other injuries or complains. Pupils 3mm PERRL ning. Pt complains of pain 6/10 scale. Physician History: 68-year-old female with history of diabetes mellitus, hypertension, arthritis scheduled for right knee TKA early next month was walking out of the lab after having fasting lipid panel drawn, her knee gave out and went on the floor. Did hit her head on the left side with no loss of consciousness. This happened just prior to arrival in the ER. Patient denies feeling any dizziness lightheadedness, chest pain palpitations or shortness of breath before or after the fall. Denies any numbness tingling focal weakness or visual disturbance/difficulty speech. Complaining of minimal headache on the left orbital ridge area. No difficulty movements of eyeball. With a small abrasion with a little bleed which is improved on its own. Allergies/Adverse Reactions: parsons pepper [green pepper] Allergy (Severe, Verified 01/24/21 06:11) Vomiting clorazepate dipotassium [From Tranxene T-Tab] Allergy (Severe, Verified 01/24/21 06:11) Hives Penicillins Allergy (Severe, Verified 01/24/21 06:11) pentazocine lactate [From Talwin] Allergy (Severe, Verified 01/24/21 06:11) vancomycin Allergy (Severe, Verified 01/24/21 06:11) Tightness of Throat codeine [Codeine] Allergy (Mild, Verified 01/24/21 06:11) Tightness of Throat Sulfa (Sulfonamide Antibiotics) [Sulfa(Sulfonamide Antibiotics)] Allergy (Mild, Verified 01/24/21 06:11) Hives butorphanol tartrate [From Stadol] Allergy (Verified 06/24/21 06:11) Hives cephalexin [From Keflex] Allergy (Verified 03/31/24 09:09) Hives trazodone Allergy (Verified 01/24/21 06:11) fresh tomatoes Allergy (Severe, Uncoded 11/30/19 19:55) Vomiting Home Medications: Amitriptyline HCl 25 mg [Amitriptyline 25 mg Tablet] 25 mg PO TID 12/16/11 [History] Citalopram Hydrobromide 20 mg* [ceLEXa 20 MG] 20 mg PO DAILY 12/16/11 [History] Pantoprazole 20 mg [Protonix 20MG Tablet] 40 mg PO DAILY 12/16/11 [History] Zolpidem Tartrate 10 mg [Ambien 10 MG] 10 mg PO HS 12/16/11 [History] Divalproex Sodium [Depakote] 500 mg PO BID 03/05/15 [History] Alendronate Sodium 70 mg [Fosamax 70 MG] 70 mg PO WEEKLY 06/15/18 [History] Primidone 50 mg PO TID 06/15/18 [History] lisinopriL [Lisinopril] 20 mg PO DAILY 06/15/18 [History] Ascorbic Acid [Vitamin C] 500 mg PO BID 11/30/19 [History] Calcium Carbonate/Vitamin D3 [Calcium 500-Vit D3 600 Tablet] 1 each PO DAILY 11/30/19 [History] Vitamin B Complex [Super B Complex] 1 each PO DAILY 11/30/19 [History] Hydrocodone/Acetaminophen [Hydrocodone-Acetamin 7.5-325] 1 each PO TID PRN 01/18/21 [History] Lutein [Natural Lutein] 20 mg PO DAILY 01/18/21 [History] Multivitamin [Multivitamins] 1 each PO DAILY 01/18/21 [History] Potassium Chloride Tab* [Klor Con] 10 meq PO DAILY 01/18/21 [History] Ferrous Sulfate [Iron] 325 mg PO DAILY 01/23/21 [History] Cholecalciferol (Vitamin D3) [Vitamin D3] 1,000 unit PO DAILY 01/24/21 [History] Metformin HCl 500 mg [Glucophage 500 MG] 500 mg PO BIDWM 02/29/24 [History] Hx Tetanus, Diphtheria Vaccination/Date Given: Yes Hx Influenza Vaccination/Date Given: No Hx Pneumococcal Vaccination/Date Given: Yes Immunizations Up to Date: Yes Travel Risk - International Travel Have you traveled outside of the country in past 3 weeks: No - Emerging Infectious Disease Are you exhibiting symptoms associated with any current EIDs: No - Review of Systems Constitutional: No Symptoms Eyes: No Symptoms Ears, Nose, & Throat: No Symptoms Respiratory: No Symptoms Cardiac: No Symptoms Abdominal/Gastrointestinal: No Symptoms Genitourinary Symptoms: No Symptoms Musculoskeletal: Arthralgias Skin: Skin Lesions Neurological: Headache Hematologic/Lymphatic: No Symptoms Immunological/Allergic: No Symptoms - Past Medical History Pertinent Past Medical History: Yes Neurological History: No Pertinent History ENT History: No Pertinent History Cardiac History: Deep Vein Thrombosis, Hypertension, Other Respiratory History: Asthma Endocrine Medical History: Diabetes Type II Musculoskeletal History: Fibromyalgia GI Medical History: Crohns Disease, GERD History: No Pertinent History Psycho-Social History: No Pertinent History Female Reproductive Disorders: Abnormal Uterine Bleeding, Breast Cancer Other Medical History: PT. HAS CROHN'S DISEASE AND HAS FIBROMYALGIA, AND HAD BREAST CA 25 YEARS AGO W/ NO RECURRENCE. GASTRIC BYPASS 2005, heart valve issue - Past Surgical History Past Surgical History: Yes Neuro Surgical History: No Pertinent History Cardiac: No Pertinent History Respiratory: No Pertinent History Gastrointestinal: Appendectomy, Cholecystectomy, Hernia Repair, Other Genitourinary: No Pertinent History Musculoskeletal: No Pertinent History Female Surgical History: Hysterectomy Other Surgical History: gastric bypass, ivc filter,rt right mastectomy 1992,lt lumpectomy - Social History Smoking Status: Never smoker Exposure to second hand smoke: No Drug Use: none Patient Lives Alone: Yes - Social Determinants of Health Will the patient participate in the screening: Yes Do you worry about a steady place to live?: No Do you have any problems with any of the following?: No known problems In the past 12 months,have you had to go without utilities?: No Transportation Issues: No Has anyone in your support network made you feel unsafe?: No Have you or anyone in your house had to go without enough: No - Nursing Vital Signs Nursing Vital Signs: Initial Vital Signs Temperature 96.8 F 03/31/24 09:03 Pulse Rate 73 03/31/24 09:03 Respiratory Rate 18 03/31/24 09:03 Blood Pressure 121/70 03/31/24 09:03 O2 Sat by Pulse Oximetry 99 03/31/24 09:03 Pain Scale Pain Intensity 0 - Gilson Coma Score Best Eye Response (Gilson): (4) open spontaneously Best Verbal Response (Gilson): (5) oriented Best Motor Response (Gilson): (6) obeys commands [place] Total: 15 - Physical Exam General Appearance: no apparent distress, alert Head Injury: contusions, tenderness (Lateral orbital ridge with abrasion with a small puncture wound) Eye Exam: PERRL/EOMI, eyes nml inspection ENT Exam: airway nml, No evidence of ENT injury, No dental injury, No nml ext.inspection Neck Exam: supple, trachea midline, full range of motion, normal alignment Respiratory/Chest Exam: normal breath sounds, respiratory distress, No chest tenderness Cardiovascular Exam: normal heart sounds, regular rate/rhythm Gastrointestinal Exam: soft, normal bowel sounds, No tenderness Back Exam: normal inspection Extremity Exam: normal inspection, normal range of motion Neurologic Exam: alert, oriented x 3, cooperative, animal care giver II-XII nml as tested, normal mood/affect, nml cerebellar function, sensation nml, No motor deficits Skin Exam: normal color SpO2 Interpretation: normal SpO2: 99 O2 Delivery: Room Air - Course EKG Interpreted by Me: RATE (69), Sinus Rhythm, NORMAL AXIS, NORMAL INTERVALS, Q-wave Ordered Tests: Active Orders 24 hr Category Date Time Status EKG-ER Only STAT Care 03/31/24 09:35 Active IV Insertion STAT Care 03/31/24 09:35 Active Orthostatic Vital Signs STAT Care 03/31/24 09:37 Active CERVICAL SPINE WO CONTRAST [CT] Stat Exams 03/31/24 09:37 Completed CHEST 1 VIEW (PORTABLE) Stat Exams 03/31/24 09:35 Completed HEAD WITHOUT CONTRAST [CT] Stat Exams 03/31/24 09:37 Completed CBC W DIFF Stat Lab 03/31/24 09:50 Completed CMP Stat Lab 03/31/24 08:40 Completed MAGNESIUM Stat Lab 03/31/24 08:40 Completed POCT GLUCOSE Stat Lab 03/31/24 09:04 Completed TROPONIN Q4H Lab 03/31/24 08:40 Completed TROPONIN Q4H Lab 03/31/24 13:45 Ordered TROPONIN Q4H Lab 03/31/24 17:45 Ordered UA W/RFX UR CULTURE Stat Lab 03/31/24 11:25 Completed Medication Summary Discontinued Medications Generic Name Dose Route Start Last Admin Trade Name Celso PRN Reason Stop Dose Admin Acetaminophen 650 mg 03/31/24 09:35 03/31/24 09:56 Acetaminophen 325 Mg Tablet PO 03/31/24 09:36 650 mg STAT ONE Administration Acetaminophen Confirm 03/31/24 09:52 Acetaminophen 325 Mg Tablet Administered 03/31/24 09:53 Dose 650 mg .ROUTE .STK-MED ONE Sodium Chloride 500 mls @ 500 mls/hr 03/31/24 09:36 03/31/24 11:48 Sodium Chloride 0.9% 500 Ml IV 03/31/24 10:35 Infused .Q1H ONE Infusion Sodium Chloride Confirm 03/31/24 09:52 Sodium Chloride 0.9% 500 Ml Administered 03/31/24 09:53 Dose 500 mls @ ud IV .STK-MED ONE Lab/Rad Data: Laboratory Result Diagrams 03/31/24 09:50 03/31/24 08:40 Laboratory Results 03/31/24 03/31/24 03/31/24 Range/Units 11:25 09:50 09:50 WBC 5.8 (3.98-10.04) x10^3/uL RBC 3.48 L (3.93-5.22) x10^6/uL Hgb 11.3 (11.2-15.7) g/dL Hct 35.7 (34.1-44.9) % MCV 102.6 H (79.4-94.8) fL MCH 32.5 H (25.6-32.2) pg MCHC 31.7 L (32.2-35.5) g/dL RDW 13.4 (11.7-14.4) % Plt Count 251 (182-369) x10^3/uL MPV 8.9 L (9.4-12.3) fL Gran % 57.3 (34.0-71.1) % Immature Gran % (Auto) 0.2 (0.001-0.429) % Nucleat RBC Rel Count 0.0 (0.00-0.2) % Eos # (Auto) 0.10 (0.04-0.36) x10^3/uL Immature Gran # (Auto) 0.01 (0.001-0.031) x10^3u/L Absolute Lymphs (auto) 1.84 (1.18-3.74) x10^3/uL Absolute Monos (auto) 0.48 (0.24-0.86) x10^3/uL Absolute Nucleated RBC 0.00 (0.00-0.012) x10^3u/L Lymphocytes % 32.0 (19.3-51.7) % Monocytes % 8.3 (4.7-12.5) % Eosinophils % 1.7 (0.7-5.8) % Basophils % 0.5 (0.1-1.2) % Absolute Granulocytes 3.29 (1.56-6.13) x10^3/uL Basophils # 0.03 (0.01-0.08) x10^3/uL Sodium (135-145) mmol/L Potassium (3.5-5.1) mmol/L Chloride (98-107) mmol/L Carbon Dioxide (22-30) mmol/L Anion Gap (5-15) MEQ/L BUN (7-17) mg/dL Creatinine (0.52-1.04) mg/dL Estimated GFR ML/MIN Glucose (74-106) mg/dL POC Glucometer (74 to 106) mg/dL Calcium (8.4-10.2) mg/dL Magnesium (1.6-2.3) mg/dL Total Bilirubin (0.2-1.3) mg/dL AST (14-36) U/L ALT (0-35) U/L Alkaline Phosphatase (38-126) U/L Troponin I (0.000-0.033) ng/mL Serum Total Protein (6.3-8.2) g/dL Albumin (3.5-5.0) g/dL Urine Color Yellow (Yellow) Urine Appearance Clear (Clear) Urine pH 5.5 (4.6-8.0) Ur Specific Murphy 1.015 (1.005-1.030) Urine Protein Negative (Negative) Urine Glucose (UA) Negative (Negative) mg/dL Urine Ketones 15 A (Negative) Urine Blood Negative (Negative) Urine Nitrite Negative (Negative) Urine Bilirubin Negative (Negative) Urine Urobilinogen 0.2 (0.2) mg/dL Ur Leukocyte Esterase Small A (Negative) U Hyaline Cast (Auto) NONE SEEN (0-2) /LPF Urine Microscopic RBC 0-2 (0-5) /HPF Urine Microscopic WBC 0-2 (0-5) /HPF Ur Epithelial Cells None Seen (None Seen) /HPF Urine Bacteria None Seen (None Seen) /HPF Urine Culture Reflexed NO (NO) Valproic Acid 20.5 L (50-100) ug/mL 03/31/24 03/31/24 Range/Units 09:04 08:40 WBC (3.98-10.04) x10^3/uL RBC (3.93-5.22) x10^6/uL Hgb (11.2-15.7) g/dL Hct (34.1-44.9) % MCV (79.4-94.8) fL MCH (25.6-32.2) pg MCHC (32.2-35.5) g/dL RDW (11.7-14.4) % Plt Count (182-369) x10^3/uL MPV (9.4-12.3) fL Gran % (34.0-71.1) % Immature Gran % (Auto) (0.001-0.429) % Nucleat RBC Rel Count (0.00-0.2) % Eos # (Auto) (0.04-0.36) x10^3/uL Immature Gran # (Auto) (0.001-0.031) x10^3u/L Absolute Lymphs (auto) (1.18-3.74) x10^3/uL Absolute Monos (auto) (0.24-0.86) x10^3/uL Absolute Nucleated RBC (0.00-0.012) x10^3u/L Lymphocytes % (19.3-51.7) % Monocytes % (4.7-12.5) % Eosinophils % (0.7-5.8) % Basophils % (0.1-1.2) % Absolute Granulocytes (1.56-6.13) x10^3/uL Basophils # (0.01-0.08) x10^3/uL Sodium 135 (135-145) mmol/L Potassium 4.6 (3.5-5.1) mmol/L Chloride 102 (98-107) mmol/L Carbon Dioxide 27 (22-30) mmol/L Anion Gap 11.4 (5-15) MEQ/L BUN 37 H (7-17) mg/dL Creatinine 0.74 (0.52-1.04) mg/dL Estimated GFR 87.5 ML/MIN Glucose 106 (74-106) mg/dL POC Glucometer 83 (74 to 106) mg/dL Calcium 9.2 (8.4-10.2) mg/dL Magnesium 1.8 (1.6-2.3) mg/dL Total Bilirubin 0.20 (0.2-1.3) mg/dL AST 34 (14-36) U/L ALT 34 (0-35) U/L Alkaline Phosphatase 65 (38-126) U/L Troponin I < 0.012 (0.000-0.033) ng/mL Serum Total Protein 6.8 (6.3-8.2) g/dL Albumin 3.8 (3.5-5.0) g/dL Urine Color (Yellow) Urine Appearance (Clear) Urine pH (4.6-8.0) Ur Specific Murphy (1.005-1.030) Urine Protein (Negative) Urine Glucose (UA) (Negative) mg/dL Urine Ketones (Negative) Urine Blood (Negative) Urine Nitrite (Negative) Urine Bilirubin (Negative) Urine Urobilinogen (0.2) mg/dL Ur Leukocyte Esterase (Negative) U Hyaline Cast (Auto) (0-2) /LPF Urine Microscopic RBC (0-5) /HPF Urine Microscopic WBC (0-5) /HPF Ur Epithelial Cells (None Seen) /HPF Urine Bacteria (None Seen) /HPF Urine Culture Reflexed (NO) Valproic Acid (50-100) ug/mL - Progress Progress: improved Progress Note: 03/31/24 12:31 68-year-old is evaluated in the ER for ground-level fall when she was walking out of the hospital after lab draw for lipid panel. Patient was fasting and her right knee gave way leading to fall. EKG is sinus rhythm with no acute ischemic changes. Chest x-ray is negative. Obtain CT head and cervical spine which are negative for any acute trauma related findings or any other acute intracranial findings. Small puncture wound/abrasion to the lateral side of orbital ridge which is cleaned and Steri-Strips applied. Normal white count, fairly unremarkable chemistries. Initial glucose was 83 but improved on lab draw to 106. No definitive UTI. I believe patient's fall is mechanical as she had no obvious neurocardiogenic cause of her fall. Recommended using cane or walker for ambulation and outpatient follow-up. Discussed signs symptoms of worsening needing return to ER which he seems understanding. Stable for discharge. Counseled pt/family regarding: lab results, diagnosis, need for follow-up, rad results Medical Desision Making - Diagnostic Testing Diagnostic test were ordered, analyzed, and reviewed by me: Yes Radiological Interpretation: Interpreted by me, Reviewed by me - Risk of complications The pt has a mod risk of morbidity or mortality based on: Need for prescription drug management - Departure Departure Disposition: Home Clinical Impression: Accidental fall, Forehead contusion Condition: Stable Critical Care Time: No Referrals: ROMY TRENT DO [Primary Care Provider] - Follow up with PCP 1 day Instructions: Contusion (DC), Preventing falls in adults Additional Instructions: Take Tylenol as needed. Intermittent ice application. Follow-up with primary care for reevaluation. Use cane/walker for ambulation to avoid a fall. Return to ER for feeling dizzy lightheaded, chest pain palpitations or shortness of breath or if having numbness tingling or weakness etc.
[2024-03-31] MEDS ORDERED: TYLENOL 325 MG ONE (09:52)
[2024-03-31] MEDS ORDERED: Sodium Chloride 0.9% 500 ML 500 ML IV ONE (09:52)
[2024-03-31 09:53] LABS: Absolute Neutrophil Ct (ANC) 3.29 x10^3/uL (1.56-6.13); BASOPHIL % 0.5 % (0.1-1.2); Basophil (Absolute #) 0.03 x10^3/uL (0.01-0.08); Eosinophil % 1.7 % (0.7-5.8); Hematocrit 35.7 % (34.1-44.9); Hemoglobin 11.3 g/dL (11.2-15.7); IMMATURE GRAN # 0.01 x10^3u/L (0.001-0.031); IMMATURE GRAN % 0.2 % (0.001-0.429); Lymphocyte (Absolute #) 1.84 x10^3/uL (1.18-3.74); Mean Cell Volume 102.6 fL (79.4-94.8); Mean Corpuscular Hemoglobin 32.5 pg (25.6-32.2); Mean Corpuscular Hgb Concent. 31.7 g/dL (32.2-35.5); Mean Platelet Volume 8.9 fL (9.4-12.3); Monocyte (Absolute #) 0.48 x10^3/uL (0.24-0.86); Monocytes % 8.3 % (4.7-12.5); Neutrophil % 57.3 % (34.0-71.1); Platelet Count 251 x10^3/uL (182-369); Red Blood Count 3.48 x10^6/uL (3.93-5.22); Red Cell Distribution Width 13.4 % (11.7-14.4); White Blood Count 5.8 x10^3/uL (3.98-10.04)
[2024-03-31] MEDS: Sodium Chloride 0.9% 500 ML 500 ML IV ONE (09:55)
[2024-03-31] MEDS: TYLENOL 325 MG PO ONE (09:56)
[2024-03-31 10:06] LABS: ALBUMIN 3.8 g/dL (3.5-5.0); ALKALINE PHOSPHATASE 65 U/L (38-126); ANION GAP 11.4 MEQ/L (5-15); BLOOD UREA NITROGEN 37 mg/dL (7-17); CHLORIDE 102 mmol/L (98-107); Calcium 9.2 mg/dL (8.4-10.2); Carbon Dioxide 27 mmol/L (22-30); Creatinine 1 0.74 mg/dL (0.52-1.04); EST GLOMERULAR FILTRATION RATE 87.5 ML/MIN; Glucose 106 mg/dL (74-106); MAGNESIUM 1.8 mg/dL (1.6-2.3); Potassium 4.6 mmol/L (3.5-5.1); SGOT/AST 34 U/L (14-36); SGPT/ALT 34 U/L (0-35); SODIUM 135 mmol/L (135-145); TROPONIN < 0.012 ng/mL (0.000-0.033); Total Protein 6.8 g/dL (6.3-8.2)
--- NOTE | 2024-03-31 11:03 | XRAY ---
Indication: Status post fall. Multiple contiguous axial images obtained through the head without contrast. Comparison: None Normal appearing brain parenchyma, ventricles, and bony calvarium for patient's age. Visualized paranasal sinuses and mastoid air cells are clear. Impression: Normal CT head without contrast exam.
--- NOTE | 2024-03-31 11:06 | XRAY ---
Indication: Status post fall. Multiple contiguous axial images obtained through the cervical spine. Sagittal and coronal reformatted images obtained. Comparison: None Osseous structures demineralized consistent with patient's age. Axial images negative for acute fracture, suspicious bony lesions, or spinal canal stenosis. Mild C5-C6 degenerative endplate spurring and mild atlantoaxial degenerative changes. Facets are symmetric. Sagittal and coronal reformatted images demonstrates normal alignment with C5-C6 disc space narrowing. No acute compression fracture, subluxation, or jumped facet. Normal appearing craniocervical junction. Visualized noncontrasted soft tissues demonstrates mild bilateral carotid calcifications. Lung apices demonstrate incompletely visualized right apical pleural-parenchymal fibrosis/scarring with calcified granuloma. Impression: 1. Negative acute fracture/subluxation. 2. Chronic findings including osteopenia, C1-C2/C5-C6 degenerative changes, carotid calcifications, and right apical pleural parenchymal fibrosis/scarring with calcified granuloma
--- NOTE | 2024-03-31 11:10 | XRAY ---
Indication: Status post fall. Comparison: December 05, 2019 Portable chest again hyperinflated with tiny right apical calcified granuloma. Increasing macrocalcifications project over right lung base favored to be benign. No focal infiltrate, consolidation, or large effusion. Heart not enlarged. Bony thorax intact again with osteopenia, degenerative changes, and right axillary dustin dissection. Impression: Continue nonacute chest with chronic features.
[2024-03-31 11:22] VITALS: O2SAT 99
[2024-03-31 12:04] LABS: ADD URINE CULTURE? NO (NO); Appearance Clear (Clear); Bacteria None Seen /HPF (None Seen); Bilirubin Negative (Negative); Blood Negative (Negative); Epithelial Cells None Seen /HPF (None Seen); Glucose, Urine Negative (Negative); Hyaline Casts NONE SEEN /LPF (0-2); Ketones 15 (Negative); Leukocyte Esterase Small (Negative); Nitrite Negative (Negative); Ph 5.5 (4.6-8.0); Protein,Urine Dip Negative (Negative); RBC 0-2 /HPF (0-5); Specific Gravity 1.015 (1.005-1.030); Urobilinogen 0.2 mg/dL (0.2); WBC 0-2 /HPF (0-5)
[2024-03-31 12:09] VITALS: PULSE 73; RESP 16
[2024-03-31 12:55] VITALS: BP 115/55
== END 2024-03-31 12:55 | disposition home or self-care (01) ==
LOC: ED 08:58
DX: S00.83XA Contusion of other part of head, initial encounter (principal); W18.39XA Other fall on same level, initial encounter; Y92.232 Corridor of hospital as the place of occurrence of the external cause; E11.9 Type 2 diabetes mellitus without complications; I10 Essential (primary) hypertension; Z79.84 Long term (current) use of oral hypoglycemic drugs; Z79.899 Other long term (current) drug therapy
CPT/HCPCS: 36000; 36415; 70450; 71045; 72125; 80053; 80164; 81001; 82947; 83735; 84484; 85025; 93005; 99284; A9270-GY

== ENCOUNTER 2024-06-15 06:18 | Day surgery (SDC) | payer MEDICARE ==
[2024-06-15] MEDS: Decadron 4 MG PO ONE (06:40)
[2024-06-15] MEDS: TYLENOL EXTRA STRENGTH 500 MG PO ONE (06:40)
[2024-06-15] MEDS: celeBREX 100 MG PO ONE (06:41)
[2024-06-15] MEDS: NEURONTIN PO ONE (06:41)
[2024-06-15] MEDS: CLINDAMYCIN-D5W 900 MG/50 ML*** 900 MG/50 ML BAG IV ONE (06:41)
[2024-06-15] MEDS: TRANEXAMIC 1,000 MG/100ML-NACL 1,000 MG/100 ML PIGGYBACK IV ONE (06:43)
[2024-06-15] MEDS: Lactated Ringers 1,000 ML IV SCH (06:43)
[2024-06-15] MEDS ORDERED: Sodium Chloride 0.9% 1000 ML 1,000 ML ONE (08:33)
[2024-06-15 09:01] LABS: ANION GAP 11.8 MEQ/L (5-15); Creatinine 1 0.7 mg/dL (0.52-1.04); EST GLOMERULAR FILTRATION RATE 93.6 ML/MIN; Potassium 4.8 mmol/L (3.5-5.1)
[2024-06-15] MEDS ORDERED: TRANEXAMIC 1,000 MG/100ML-NACL 1,000 MG/100 ML PIGGYBACK IV ONE (10:10)
--- NOTE | 2024-06-15 11:41 | XRAY ---
Indication: Follow-up surgery. Comparison: September 23, 2023 AP/crosstable lateral left knee now demonstrates total knee arthroplasty with intact articulation/prosthesis. Also new postoperative soft tissue swelling and soft tissue emphysema. Again incidental osteopenia. No other bony, articular, or soft tissue abnormalities.
[2024-06-15] MEDS ORDERED: Narcan 0.4 MG/ML IV PRN (12:15)
[2024-06-15] MEDS ORDERED: BENADRYL 50 MG/ML IV PRN (12:15)
[2024-06-15] MEDS ORDERED: DEMEROL 50 MG IV PRN (12:15)
[2024-06-15] MEDS ORDERED: Nubain 10 MG/ML IV PRN (12:15)
[2024-06-15] MEDS ORDERED: Sodium Chloride 0.9% 10 ML FLUSH Syringe IJ PRN (12:15)
[2024-06-15] MEDS ORDERED: CLARITIN 10 MG PO PRN (12:15)
[2024-06-15] MEDS ORDERED: MEDICATION INTERVENTION MC SCH (12:45)
[2024-06-15] MEDS: Sodium Chloride 0.9% 1000 ML 1,000 ML IV SCH (12:48)
[2024-06-15] MEDS: Zofran 4 MG/2 ML VIAL IV PRN (12:48)
[2024-06-15] MEDS ORDERED: Zofran 4 MG/2 ML VIAL IV PRN (13:43)
[2024-06-15] MEDS: Calcium 500MG W/Vit D Tablet PO SCH (13:54)
[2024-06-15] MEDS: THERAGRAN MULTIVITAMIN PO SCH (13:54)
[2024-06-15] MEDS: VITAMIN D PO SCH (13:54)
[2024-06-15] MEDS: Vitamin C 500 MG PO SCH (13:54)
[2024-06-15] MEDS: Zestril 10 MG PO SCH (13:54)
[2024-06-15] MEDS: Klor Con PO SCH (13:54)
[2024-06-15] MEDS: Protonix 40MG Tablet PO SCH (13:54)
[2024-06-15] MEDS: ceLEXa 20 MG PO SCH (13:55)
[2024-06-15] MEDS: FEOSOL 325 MG PO SCH (13:55)
[2024-06-15] MEDS: Ecotrin 325 MG PO SCH (13:55)
[2024-06-15] MEDS: VITA-BEE WITH C PO SCH (13:56)
[2024-06-15] MEDS: CLINDAMYCIN-D5W 900 MG/50 ML*** 900 MG/50 ML BAG IV SCH (14:07)
[2024-06-15] MEDS: MYSOLINE 50MG PO SCH (15:24)
[2024-06-15] MEDS: AMITRIPTYLINE 25 MG TABLET PO SCH (15:24)
[2024-06-15] MEDS: MORPHINE SULFATE 2 MG INJ IV PRN (15:25)
[2024-06-15] MEDS: Glucophage 500 MG PO SCH (17:03)
[2024-06-15] MEDS: Ambien 10 MG PO SCH (21:33)
[2024-06-16] MEDS: TYLENOL 325 MG PO PRN (07:20)
[2024-06-16 07:31] VITALS: O2SAT 97
[2024-06-16 09:46] VITALS: BP 120/60; PULSE 80; RESP 18; TEMP 98.2
[2024-06-16] MEDS ORDERED: HOLD NARCOTIC ANALGESICS AND SEDATIVES X24 HR MC SCH (10:00)
[2024-06-16] MEDS ORDERED: NON-FORMULARY ITEM (Lutein [Natural Lutein] 20 MG Capsule) PO SCH (10:00)
--- NOTE | 2024-06-16 11:13 | OP ---
SURGERY DATE/TIME: 06/15/2024 [id number] PREOPERATIVE DIAGNOSIS: Severe advanced osteoarthritis, left knee. POSTOPERATIVE DIAGNOSIS: Severe advanced osteoarthritis, left knee. PROCEDURE: Left total knee replacement arthroplasty utilizing the [employer] knee; a size 8 femoral component, press-fit; a size D tibial component, cemented; a 12 mm polyethylene tibial bearing tray; a 25 mm single peg inset patella all poly, cemented. SURGEON: Saurabh Goodman II, DO ANESTHESIA: Spinal with a block for postop pain control. DESCRIPTION OF PROCEDURE AND FINDINGS: The patient was identified and informed consent was obtained. The patient was taken to the operative suite after the block had been administered in the preoperative holding area. Spinal anesthetic was administered. Once an appropriate level of anesthesia had been obtained, tourniquet was placed high on the left thigh and the left lower extremity was then prepped and draped in the usual sterile fashion. A standard time-out was taken. At this point, the foot was placed into the foot holding boot for the knee hope, and the leg was then exsanguinated and the tourniquet elevated to 350 mmHg. A midline incision was accomplished with the knee in a flexed position of about 45 degrees. Skin was incised. Dissection was carried out through the subcutaneous tissue. Standard medial parapatellar incision was accomplished with a fresh #10 blade. Upon entering the joint, grade 1 synovial fluid was encountered. Hard eburnated bone was noted along the entire medial femoral condyle and lateral femoral condyle as well as on the tibial plateau. Significant degenerative changes were noted in the patella. Also noted were a number of osteophytes. At this point, a portion of the infrapatellar fat pad, medial and lateral menisci, as well as the anterior cruciate ligament were excised. At this point, Z retractors were positioned medially and a Hohmann was placed laterally. Attention was turned to the femur, where the signature series femoral guide was placed and held with the appropriate pins. The distal femoral cutting block was applied and the distal femoral cut was accomplished. The 4-in-1 cutting block was then applied from the previously made drill holes, and the anterior, posterior and chamfer cuts were then made. All wafers of bone were removed and at this point, any remaining osteophytes were removed. Attention was then turned to the tibial side where the tibial guide was placed and held with its appropriate pins. The tibial cutting block was then applied and the proximal wafer of tibia was then resected with the oscillating saw. A wafer of bone was removed and at this point, then, trial reduction of the tibia showed that the D component was the appropriate size, was held in position with its pins and noted to be in excellent alignment with the drop daniel. The trial femoral component was applied and it was deemed that a 12 mm polyethylene tray was the appropriate size to give good soft tissue balance in all planes of motion. The patella was then measured and deemed that a 25 would be the appropriate size. The milling device was utilized to mill the single peg patella. After milling, the trial reduction showed that the free resection height had been restored. Patient did have some lateral tracking, thus a limited lateral release was performed and excellent tracking was then noted. At this point then, the trial instrumentation was removed. The joint was copiously irrigated and the cement was being vacuum mixed. Cement was then pressed into the interstices of the tibia and the tibial component was then cemented into position. Femoral component was press-fit into position and the 12 mm trial tibial poly was then placed. The knee was held in extension during the curing process. At this point, the patellar button was cemented into position and held with its clamp. All excess cement was removed during the curing process. Once the cement had fully cured, the knee was then again placed through a range of motion. Excellent tracking of the patella was noted and good soft tissue balance was noted with the 12 mm polyp in all planes of motion. The trial was removed. The joint was irrigated with the pulse yoke setter and the permanent tibial tray was then inserted and locked into position. At this point, the joint was irrigated and closed with #2 Stratafix, 2-0 Monocryl, and 3-0 Stratafix subcuticular augmented with Dermabond. An Aquacel dressing was applied. The patient was transferred to the bed and taken to recovery room in satisfactory condition, having tolerated the procedure well.
[2024-06-16] MEDS ORDERED: DILAUDID 2 MG INJECTION IV PRN (12:15)
[2024-06-16] MEDS ORDERED: NORCO 7.5/325 MG TAB PO PRN ×2 (12:15)
== END 2024-06-16 09:34 | disposition home or self-care (01) ==
LOC: UNDOADMOB 06:18 → SDC 06:18 → MED SURG 06:18 → INTOOBSV 06:18 → MED SURG 06:18 → EDSTATUS 11:57 → SDC 06-16 09:34 → UNDODISOB 06-16 09:34
PROVIDERS: ATTEND Orthopaedic Surgery
DX: M17.12 Unilateral primary osteoarthritis, left knee (principal); M25.562 Pain in left knee; I10 Essential (primary) hypertension; R73.03 Prediabetes
CPT/HCPCS: 36415; 73560; 80048; 82947; J2270; J2405; A9270-GY

== ENCOUNTER 2024-10-27 10:45 | Day surgery (SDC) | payer MEDICARE ==
[2024-10-27] MEDS: Lactated Ringers 1,000 ML IV SCH (11:40)
[2024-10-27 12:09] LABS: ANION GAP 18.2 MEQ/L (5-15); Creatinine 1 0.46 mg/dL (0.52-1.04); EST GLOMERULAR FILTRATION RATE 103.5 ML/MIN; Potassium 4.6 mmol/L (3.5-5.1)
[2024-10-27] MEDS ORDERED: Xylocaine-Mpf 2% 5 Ml Vial ONE (14:21)
[2024-10-27] MEDS ORDERED: propofoL IV ONE ×3 (14:21→15:04)
[2024-10-27 15:12] VITALS: RESP 18; TEMP 97.1
[2024-10-27 15:19] VITALS: O2SAT 97
[2024-10-27 15:31] VITALS: BP 127/63; PULSE 95
--- NOTE | 2024-10-28 13:04 | OP ---
SURGERY DATE/TIME: 10/27/2024 [id number] PREOPERATIVE DIAGNOSIS: History of colitis. POSTOPERATIVE DIAGNOSIS: History of colitis. PROCEDURE: Colonoscopy with biopsies and endo-mucosal resection and tattoo. SURGEON: Keaton Perez MD ANESTHESIA: IV. PATIENT CONDITION: Stable. COMPLICATIONS: None. SPECIMEN: As below. INDICATIONS: The patient reports that she had previously been following with GI, that she had a possibility of Crohn's disease in the past, that she is overdue for surveillance for that. She is not really having any change in her symptoms that she has been in clinical remission for her Crohn's disease, certainly not having any blood or diarrhea or changes in bowels. Discussed with the patient. She elected to proceed with endoscopy. FINDINGS: 1) Good preparation. 2) Normal-appearing terminal ileum, colon. 3) Mild diverticulosis. 4) One polyp required an endo-mucosal resection and that is tattooed; otherwise, biopsies were taken. DESCRIPTION OF PROCEDURE AND FINDINGS: Patient was brought to the endoscopy suite. Routinely positioned and prepared. IV anesthesia induced by Anesthesia. External examination normal. Digital rectal examination normal. Colonoscope was inserted and advanced to the cecum, confirmed by the ileocecal valve, and the appendiceal orifice. The colonoscope was advanced into the terminal ileum. The terminal ileum is totally normal in appearance. The withdrawal time was greater than 6 minutes. The preparation was an Aronchick good preparation. The biopsies are taken segmentally of the cecum, transverse colon, descending colon. At the transverse colon, there was a 1 cm sessile polyp which was taken with the endo-mucosal resection, the EverLift then a hot snare. It appears to be totally excised. Then, a tattoo was placed distal to the lesion. That is all satisfactory. The rest of the procedure is uneventful. Retroflexion normal. Patient tolerated the procedure well, was taken to Recovery in stable condition. RECOMMENDATIONS: Follow up in office within a month to go over pathology results. Probably would be a 3-year repeat colonoscopy.
== END 2024-10-27 15:33 | disposition home or self-care (01) ==
LOC: SDC 10:45
PROVIDERS: ATTEND Surgery
DX: Z87.19 Personal history of other diseases of the digestive system (principal); K57.30 Diverticulosis of large intestine without perforation or abscess without bleeding; D12.3 Benign neoplasm of transverse colon
CPT/HCPCS: 36415; 80048; 93005; J2704